=== PATIENT | female | born 1940 | race Caucasian/White ===

== ENCOUNTER 2020-07-19 | Emergency (ER) | payer MEDICARE, OTHER ==
--- NOTE | 2020-07-19 14:17 | ED Physician Documentation ---
History of Present Illness - Stated complaint Stated Complaint: R HAND/LEG PX - Chief complaint Chief Complaint: General - History obtained from History obtained from: Patient - Additonal information Additional information: Pt c/o dorsal R hand pain, only when she pushes on it, x 1 month. Same sensation in R lateral lower leg. No direct injury. No increased use. No swelling or skin discoloration. No deformity. No other sx. No h/o DVT. No specific arthritis dx. No other complaints. [place] . Review of Systems Ten Systems: 10 systems reviewed and negative Constitutional: reports: Reviewed and negative Eyes: reports: Reviewed and negative Ears: reports: Reviewed and negative Nose: reports: Reviewed and negative Throat: reports: Reviewed and negative Cardiac: reports: Reviewed and negative Respiratory: reports: Reviewed and negative GI: reports: Reviewed and negative : reports: Reviewed and negative Skin: reports: Reviewed and negative Musculoskeletal: reports: Extremity pain, Joint pain Neurologic: reports: Reviewed and negative Psychiatric: reports: Reviewed and negative Endocrine: reports: Reviewed and negative Immunocompromised: reports: Reviewed and negative PD PAST MEDICAL HISTORY - Past Medical History Neuro: Other Endocrine/Autoimmune: Type 2 diabetes Other Past Medical History: 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 at age 17, "short term memory problems" - Past Surgical History Past Surgical History: No General: Cholecystectomy, 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 HEENT: Tonsil/Adenoidectomy - Present Medications Home Medications: Ambulatory Orders Medication Instructions Recorded Confirmed Home Medications Unobtainable 07/19/20 07/19/20 [HOME MEDICATIONS UNOBTAINABLE] - Allergies Allergies/Adverse Reactions: Allergies Allergy/AdvReac Type Severity Reaction Status Date / Time Penicillins AdvReac Unknown Verified 07/19/20 14:14 Sulfa (Sulfonamide AdvReac Unknown Verified 07/19/20 14:14 Antibiotics) - Social History Does the pt smoke?: No Smoking Status: Never smoker Does the pt drink ETOH?: No Substance Use and Type: Marijuana - Immunizations Immunizations are current?: Yes PD ED PE NORMAL - Vitals Vital signs reviewed: Yes - General General: Alert and oriented X 3, No acute distress - HEENT HEENT: Atraumatic, PERRL, EOMI, Moist mucous membranes - Neck Neck: Supple, no meningeal sign - Cardiac Cardiac: Strong equal pulses - Respiratory Respiratory: No respiratory distress - Derm Derm: Normal color, Warm and dry, No rash - Extremities Extremities: No deformity, Normal ROM s pain, No edema, No calf tenderness / cord, Other (Minimal TTP R hand dorsum. No other abnormality. R FA normal. Slight TTP R lateral lower leg. No trauma. 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 We have discussed the use of ibuprofen PRN, and follow-up if needed. Departure - Departure Disposition: 01 Home, Self Care Clinical Impression: Hand pain, right Leg pain, lateral Qualifiers: Laterality: right Qualified Code(s): M79.604 - Pain in right leg Condition: Stable Instructions: ED Muscle Pain Leg Cramps, ED Degenerative Joint Disease Comments: Right now, both your hand and your leg look normal. There is no evidence of a blood clot in the leg, and you have not had any trauma or swelling to raise concern. At this point in time, is not exactly clear with causing her symptoms, though it may be some degree of arthritis in your hand. You may take ibuprofen occasionally as needed for this, and you may apply an ice pack also, if needed. If your right leg begins to swell up and become increasingly painful, then you should have it rechecked. Otherwise, please follow-up with Dr. Grove for further concerns regarding this symptoms Discharge Date/Time: 07/19/20 14:36
== END 2020-07-19 14:36 | disposition home or self-care (01) ==
CPT/HCPCS: 99282; 99283

== ENCOUNTER 2020-07-19 11:05 | Outpatient (CLI) | payer MEDICARE, OTHER | END 2020-07-19 11:06 | disposition critical access hospital (66) | LOC: EMS 11:05 | DX: M79.601 Pain in right arm (principal); M79.604 Pain in right leg; M54.2 Cervicalgia | CPT/HCPCS: A0425; A0429 ==

== ENCOUNTER 2021-02-13 08:00 | Outpatient (CLI) | payer MEDICARE, OTHER | END 2021-02-13 08:01 | disposition home or self-care (01) | LOC: LAB.N 08:00 | PROVIDERS: ATTEND Nurse Practitioner | DX: N39.0 Urinary tract infection, site not specified (principal) | CPT/HCPCS: 87086 ==

== ENCOUNTER 2021-02-22 08:00 | Outpatient (CLI) | payer MEDICARE, OTHER | END 2021-02-22 23:59 | LOC: LAB.N 08:00 | PROVIDERS: ATTEND Family Medicine | DX: N39.0 Urinary tract infection, site not specified (principal) | CPT/HCPCS: 87086 ==

== ENCOUNTER 2021-02-26 15:41 | Outpatient (CLI) | payer MEDICARE, OTHER | END 2021-02-26 15:42 | disposition critical access hospital (66) | LOC: EMS 15:41 | DX: N39.0 Urinary tract infection, site not specified (principal) | CPT/HCPCS: A0425; A0429 ==

== ENCOUNTER 2021-02-26 15:59 | Emergency (ER) | payer MEDICARE, OTHER ==
[2021-02-26] MEDS ORDERED: SODIUM CHLORIDE 0.9% 1,000 ML IV STA ×2 (16:56→21:53)
--- NOTE | 2021-02-26 16:58 | ED Physician Documentation ---
History of Present Illness - Stated complaint Stated Complaint: BLADDER INFECTION - Chief complaint Chief Complaint: UTI - Additonal information Additional information: 80-year-old female presents the emergency department for evaluation of unchanged urinary symptoms. She reports dysuria urgency and frequency. She was seen at a local walk-in clinic about 3 days ago and diagnosed with a urinary tract infection and started on cipro 500 mg po BID. Despite taking this she continues to have worsening symptoms, increased fatigue as well as low back pain. She denies any fevers or vomiting. No diarrhea. She is a diabetic on insulin. Reports blood glucose at home of about 230 which is generally high for her. Review of Systems Constitutional: denies: Fever, Chills Ears: reports: Reviewed and negative Throat: reports: Reviewed and negative Cardiac: reports: Reviewed and negative Respiratory: reports: Reviewed and negative GI: denies: Abdominal Pain, Nausea, Vomiting : reports: Dysuria, Frequency Skin: denies: Rash, Lesions Musculoskeletal: reports: Back pain Neurologic: reports: Generalized weakness. 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 HEENT: Tonsil/Adenoidectomy - Present Medications Home Medications: Ambulatory Orders Medication Instructions Recorded Confirmed Alendronate Sodium 4 02/26/21 Atenolol [Tenormin] 25 mg PO DAILY 02/26/21 02/26/21 Cefpodoxime Proxetil [Vantin] 100 mg PO Q12H #14 tablet 02/26/21 Donepezil [Aricept] 10 mg PO DAILY 02/26/21 02/26/21 Insulin Glargine [Lantus Solostar] 14 units SQ DAILY 02/26/21 02/26/21 Levothyroxine [Synthroid] 75 mcg PO QDAC 02/26/21 02/26/21 Loratadine [Allergy Relief] 10 mg PO DAILY 02/26/21 02/26/21 Memantine [Namenda] 5 mg PO DAILY 02/26/21 02/26/21 Omeprazole Magnesium 20 mg PO DAILY 02/26/21 02/26/21 Sertraline [Zoloft] 50 mg PO DAILY 02/26/21 02/26/21 amLODIPine [Norvasc] 10 mg PO DAILY 02/26/21 02/26/21 metFORMIN [Glucophage] 500 mg PO DAILY 02/26/21 02/26/21 - Allergies Allergies/Adverse Reactions: Allergies Allergy/AdvReac Type Severity Reaction Status Date / Time Penicillins AdvReac Unknown Verified 07/19/20 14:14 Sulfa (Sulfonamide AdvReac Unknown Verified 07/19/20 14:14 Antibiotics) - Social History Does the pt smoke?: No Smoking Status: Never smoker Does the pt drink ETOH?: No Does the pt have substance abuse?: No - Immunizations Immunizations are current?: Yes PD ED PE NORMAL - General General: Alert and oriented X 3, No acute distress, Well developed/nourished - Neck Neck: Supple, no meningeal sign, No adenopathy, Thyroid normal - Cardiac Cardiac: RRR, No murmur, No gallop - Respiratory Respiratory: No respiratory distress, Clear bilaterally - Abdomen Abdomen: Normal bowel sounds, Soft, Non tender - Back Back: Other (Mild tenderness of the lower bilateral paraspinous muscles. No CVA tenderness. No flank pain. No guarding or rebound.). 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 Eye Opening: Spontaneous Motor: Obeys Commands Verbal: Oriented GCS Score: 15 Results - Vitals Vitals: Vital Signs - 24 hr 02/26/21 02/26/21 02/26/21 16:05 16:09 17:30 Temperature 36.3 C L 36.3 C L Heart Rate 54 L 54 L 58 L Respiratory 18 18 16 Rate Blood Pressure 109/54 L 109/54 L 112/44 L O2 Saturation 98 98 98 02/26/21 20:00 Temperature Heart Rate 61 Respiratory 17 Rate Blood Pressure 108/76 O2 Saturation 96 Oxygen O2 Source Room air - Labs Labs: Laboratory Tests 02/26/21 02/26/21 02/26/21 16:51 16:57 16:57 WBC 9.8 RBC 3.73 L Hgb 10.2 L Hct 31.6 L MCV 84.7 MCH 27.3 MCHC 32.3 RDW 15.1 H Plt Count 293 MPV 11.2 H Neut # (Auto) 7.4 H Lymph # (Auto) 1.1 L Desha # (Auto) 1.0 Eos # (Auto) 0.3 Baso # (Auto) 0.0 Absolute Nucleated RBC 0.00 Nucleated RBC % 0.0 Sodium 130 L Potassium 4.3 Chloride 97 L Carbon Dioxide 24 Anion Gap 9.0 BUN 35 H Creatinine 1.3 H Estimated GFR (MDRD) 39 L Glucose 147 H Lactic Acid Calcium 8.5 Total Bilirubin 0.5 AST 14 ALT 12 Alkaline Phosphatase 49 Total Protein 7.3 Albumin 3.0 L Globulin 4.3 H Albumin/Globulin Ratio 0.7 L Lipase 27 Urine Color DARK YELLOW Urine Clarity HAZY Urine pH 5.5 Ur Specific Lamona >=1.030 H Urine Protein 30 H Urine Glucose (UA) NEGATIVE Urine Ketones TRACE Urine Occult Blood NEGATIVE Urine Nitrite NEGATIVE Urine Bilirubin NEGATIVE Urine Urobilinogen 0.2 (NORMAL) Ur Leukocyte Esterase SMALL H Urine RBC 0-5 Urine WBC 11-25 H Ur Squamous Epith Cells MANY Squamous H Amorphous Sediment Few Urine Bacteria Many H Ur Microscopic Review INDICATED Urine Culture Comments NOT INDICATED Nasal Adenovirus (PCR) Nasal B. parapertussis DNA (PCR) Nasal Coronavir 229E PCR Nasal Coronavir HKU1 PCR Nasal Coronavir NL63 PCR Nasal Coronavir OC43 PCR Nasal Enterovir/Rhinovir PCR Nasal Influenza B PCR Nasal Influenza A PCR Nasal Parainfluen 1 PCR Nasal Parainfluen 2 PCR Nasal Parainfluen 3 PCR Nasal Parainfluen 4 PCR Nasal RSV (PCR) Nasal B.pertussis DNA PCR Nasal C.pneumoniae (PCR) Emile Human Metapneumo PCR Nasal M.pneumoniae (PCR) Nasal SARS-CoV-2 (PCR) 02/26/21 02/26/21 02/26/21 16:57 19:45 21:00 WBC RBC Hgb Hct MCV MCH MCHC RDW Plt Count MPV Neut # (Auto) Lymph # (Auto) Desha # (Auto) Eos # (Auto) Baso # (Auto) Absolute Nucleated RBC Nucleated RBC % Sodium Potassium Chloride Carbon Dioxide Anion Gap BUN Creatinine Estimated GFR (MDRD) Glucose Lactic Acid 1.4 Calcium Total Bilirubin AST ALT Alkaline Phosphatase Total Protein Albumin Globulin Albumin/Globulin Ratio Lipase Urine Color YELLOW Urine Clarity CLEAR Urine pH 5.0 Ur Specific Lamona 1.010 Urine Protein TRACE Urine Glucose (UA) NEGATIVE Urine Ketones NEGATIVE Urine Occult Blood NEGATIVE Urine Nitrite NEGATIVE Urine Bilirubin NEGATIVE Urine Urobilinogen 0.2 (NORMAL) Ur Leukocyte Esterase NEGATIVE Urine RBC Urine WBC Ur Squamous Epith Cells Amorphous Sediment Urine Bacteria Ur Microscopic Review NOT INDICATED Urine Culture Comments NOT INDICATED Nasal Adenovirus (PCR) NOT DETECTED Nasal B. parapertussis DNA (PCR) NOT DETECTED Nasal Coronavir 229E PCR NOT DETECTED Nasal Coronavir HKU1 PCR NOT DETECTED Nasal Coronavir NL63 PCR NOT DETECTED Nasal Coronavir OC43 PCR NOT DETECTED Nasal Enterovir/Rhinovir PCR NOT DETECTED Nasal Influenza B PCR NOT DETECTED Nasal Influenza A PCR NOT DETECTED Nasal Parainfluen 1 PCR NOT DETECTED Nasal Parainfluen 2 PCR NOT DETECTED Nasal Parainfluen 3 PCR NOT DETECTED Nasal Parainfluen 4 PCR NOT DETECTED Nasal RSV (PCR) NOT DETECTED Nasal B.pertussis DNA PCR NOT DETECTED Nasal C.pneumoniae (PCR) NOT DETECTED Emile Human Metapneumo PCR NOT DETECTED Nasal M.pneumoniae (PCR) NOT DETECTED Nasal SARS-CoV-2 (PCR) NOT DETECTED - Rads (name of study) CT abd Radiology: Final report received (9 mm obstructing stone seen at the left UVJ with associated left hydroureter and hydronephrosis. Perinephric fat stranding is also seen.) PD MEDICAL DECISION MAKING - ED course Complexity details: reviewed results, re-evaluated patient, considered differential, d/w patient ED course: 80-year-old female comes to the emergency department for evaluation of generalized weakness and persistence of urinary symptoms. Seen twice recently at local walk-in clinics where she was diagnosed with a UTI. However despite taking Cipro her symptoms had not improved. She had no fevers or vomiting but did endorse lower back pain that began today. She had no fever. Screening labs showed no leukocytosis. She does appear mildly dehydrated with an elevated BUN and mildly elevated creatinine as well as a concentrated urine. She was repleted with 1.5 L of crystalloid here in the ER. Initially her urine was suggestive of infection though it was a clean-catch and had a fair amount of squamous cells. But given the persistence of urinary symptoms this would have been considered equivocal for infection. A CT scan did show a left UVJ stone as well as some associated hydronephrosis and hydroureter. 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 There was some associated fat stranding. I did discuss this case with Dr. Guallpa a urologist on-call with [facility]. He would recommend repeating her urinalysis with a in and out catheterization. If that did not show any persistence of infection then patient would be stable for discharge home to follow-up with urology as an outpatient. Repeat UA reassuringly shows no further signs of infection. However given the patient's persistence of dysuria urgency and frequency we will transition her from Cipro to Vantin. She will also be referred to urology as an outpatient. I discussed the CT imaging and plan findings with her daughter Kandi at length. Emergent return precautions otherwise discussed. Departure - Departure Disposition: Home, Self Care Clinical Impression: Calculus of ureterovesical junction (UVJ), Hydronephrosis of left kidney, Hydroureter, left, Urinary tract infection symptoms Condition: Stable Record reviewed to determine appropriate education?: Yes Follow-Up: Britni Christiansen MD [Provider Admit Priv/Credential] - Prescriptions: Cefpodoxime Proxetil [Vantin] 100 mg PO Q12H #14 tablet Comments: Lashawn you were seen in the emergency department today for feeling generally weak as well as having urinary tract infection symptoms. Initially the urine provided to us suggested infection though it was a fairly contaminated sample. We repeated your urinalysis by doing an in and out catheterization. Reassuringly the in and out catheterization does not show signs of infection. You do have some mild dehydration therefore we did give you some IV fluids here in the ER and you are reportedly feeling better. The CT scan of your abdomen shows that you do have some swelling in your left kidney due to stones in the kidney as well as the the ureterovesicular junction. I did discuss your CT findings with an on-call urologist at [facility]. Because there are no findings of infection in your urine at this time and your kidney function is essentially normal he feels that you are stable to follow-up with an outpatient urologist. Please call [facility] on Saturday to arrange follow-up. However your primary doctor may need to make a referral. Because you continue to have urinary symptoms despite taking the Cipro I would like to start you on a new antibiotic. A prescription for Cefpodoxime or also known as Vantin has been sent to the [facility] in [place]. Please stop taking the Cipro. If at any point you develop fevers, have worsening symptoms, severe dehydration, any chest pain or shortness of air then you are to return immediately to the ER for a second evaluation.
[2021-02-26 16:59] LABS: BILIRUBIN,URINE NEGATIVE (NEGATIVE); GLUCOSE, URINE (UA) NEGATIVE (NEGATIVE); KETONES,URINE (UA) TRACE mg/dL (NEGATIVE); LEUKOCYTE ESTERASE, URINE SMALL (NEGATIVE); NITRITE,URINE NEGATIVE (NEGATIVE); OCCULT BLOOD,URINE NEGATIVE (NEGATIVE); PH,URINE 5.5 PH (5.0-7.5); PROTEIN,URINE 30 mg/dL (NEGATIVE); UROBILINOGEN,URINE 0.2 (NORMAL) E.U./dL (NORMAL)
[2021-02-26 17:06] LABS: BASOPHILS % (AUTO) 0.4 %; EOSINOPHILS # (AUTO) 0.3 10^3/uL (0.0-0.7); EOSINOPHILS % (AUTO) 2.5 %; HCT - HEMATOCRIT 31.6 % (37.0-47.0); HGB - HEMOGLOBIN 10.2 g/dL (12.0-16.0); LYMPHOCYTES # (AUTO) 1.1 10^3/uL (1.5-3.5); LYMPHOCYTES % (AUTO) 11.6 %; MEAN CORPUSCULAR HEMOGLOBIN 27.3 pg (27.0-31.0); MEAN CORPUSCULAR HGB CONC 32.3 g/dL (32.0-36.0); MEAN CORPUSCULAR VOLUME 84.7 fL (81.0-99.0); MEAN PLATELET VOLUME 11.2 fL (7.9-10.8); NEUTROPHILS # (AUTO) 7.4 10^3/uL (1.5-6.6); NEUTROPHILS % (AUTO) 74.9 %; PLT - PLATELET COUNT 293 10^3/uL (130-450); RED BLOOD COUNT 3.73 10^6/uL (4.20-5.40); RED CELL DISTRIBUTION WIDTH 15.1 % (12.0-15.0); WHITE BLOOD COUNT 9.8 x10^3/uL (4.8-10.8)
[2021-02-26 17:07] LABS: CLARITY,URINE HAZY (CLEAR)
[2021-02-26] MEDS ORDERED: iohexoL-300 100 ML VIAL ONE (17:09)
[2021-02-26 17:13] LABS: RBC,URINE 0-5 /HPF (0-5)
[2021-02-26 17:14] LABS: ALBUMIN/GLOBULIN RATIO 0.7 (1.0-2.2); BILIRUBIN,TOTAL 0.5 mg/dL (0.2-1.0); CALCIUM 8.5 mg/dL (8.5-10.3); CREATININE 1.3 mg/dL (0.4-1.0); POTASSIUM 4.3 mmol/L (3.5-5.0); TOTAL PROTEIN 7.3 g/dL (6.7-8.2)
[2021-02-26 17:14] LABS: AMORPHOUS SEDIMENT,UR Few /LPF; BACTERIA,URINE Many /HPF (None Seen); SQUAMOUS EPITHELIAL CELL,UR MANY Squamous (<= Few)
[2021-02-26] MEDS ORDERED: iohexoL-300 100 ML VIAL IVP ONE (18:01)
--- NOTE | 2021-02-26 18:09 | CT Report ---
PROCEDURE: Abdomen/Pelvis W INDICATIONS: UTI; LOW back pain not improved with abx CONTRAST: IV CONTRAST: Isovue 300 ml: 100 PO CONTRAST: *NO PO CONTRAST TECHNIQUE: After the administration of IV contrast, 5 mm thick sections acquired from the diaphragms to the symp hysis. 5 mm thick coronal and sagittal reformats were acquired. For radiation dose reduction, the f ollowing was used: automated exposure control, adjustment of mA and/or kV according to patient size. COMPARISON: None. FINDINGS: Image quality: There is artifact associated with the metallic hardware. ABDOMEN: Lung bases: Lung bases are clear. Heart size is normal. A small hiatal hernia is incidentally note d. Solid organs: Liver and spleen are normal in size and enhancement. Gallbladder is not seen Biliary system is non dilated. Pancreas enhances normally. No adrenal nodules. There is obstructing stone seen within the distalmost ureter at the left ureterovesicular junction th at measures 9 mm, as on series 3 image 74 and on series 6 image 30. There is associated moderate to p rominent left-sided hydroureter and hydronephrosis. There is decreased enhancement seen of the left k idney compared to the right. Left kidney perinephric fat stranding can be seen. There is a staghorn calculus seen throughout the inferior left renal collecting system that measures nearly 4 cm. Peritoneum and bowel: Bariatric surgery can be seen. Bowel loops demonstrate normal wall thickness and caliber. No free fluid or air. Nodes and vessels: No retroperitoneal or mesenteric adenopathy by size criteria. Aorta and inferior vena cava are normal in size. Atherosclerotic calcification is seen. Miscellaneous: No ventral hernias. PELVIS: Genitourinary: Bladder wall thickness is normal. Miscellaneous: No inguinal hernias or adenopathy. Bones: No suspicious bony lesions. No vertebral body compression fractures. Right hip arthroplasty hardware is seen. Age-appropriate degenerative changes are seen. IMPRESSION: There is a 9 mm obstructing stone seen at the left ureterovesicular junction, with associated left-si ded hydroureter and hydronephrosis. Perinephric fat stranding is also seen. Decreased enhancement seen of the left kidney compared to the right, which is consistent with comprom ised left renal function. There is a left kidney staghorn calculus is seen that measures nearly 4 cm. Incidental note is made of: Small hiatal hernia Bariatric surgery Presumed cholecystectomy Right hip arthroplasty hardware Reviewed by: Augustine Tafoya MD on 02/26/2021 5:08 PM [facility] Approved by: Augustine Tafoya MD on 02/26/2021 5:08 PM [facility] Station ID: [id number]
[2021-02-26] MEDS ORDERED: cefTRIAXone 1 GM in SODIUM CHLORIDE 0.9% MINIBAG 100 ML IV STA (19:13)
[2021-02-26 21:26] LABS: BILIRUBIN,URINE NEGATIVE (NEGATIVE); GLUCOSE, URINE (UA) NEGATIVE (NEGATIVE); KETONES,URINE (UA) NEGATIVE (NEGATIVE); LEUKOCYTE ESTERASE, URINE NEGATIVE (NEGATIVE); NITRITE,URINE NEGATIVE (NEGATIVE); OCCULT BLOOD,URINE NEGATIVE (NEGATIVE); PROTEIN,URINE TRACE mg/dL (NEGATIVE); UROBILINOGEN,URINE 0.2 (NORMAL) E.U./dL (NORMAL)
[2021-02-26 21:35] LABS: B. PARAPERTUSSIS- RESP PCR PAN NOT DETECTED; B. PERTUSSIS- RESP PCR PANEL NOT DETECTED; C. PNEUMONIAE- RESP PCR PANEL NOT DETECTED; CORONAVIRUS 229E-RESP PCR NOT DETECTED; CORONAVIRUS HKU1-RESP PCR NOT DETECTED; CORONAVIRUS NL63-RESP PCR NOT DETECTED; CORONAVIRUS OC43-RESP PCR NOT DETECTED; HUMAN METAPNEUMOVIRUS NOT DETECTED; INFLUENZA A- RESP PCR PANEL NOT DETECTED; INFLUENZA B - RESP PCR PANEL NOT DETECTED; M. PNEUMONIAE- RESP PCR PANEL NOT DETECTED; PARAINFLUENZA VIRUS 1 NOT DETECTED; PARAINFLUENZA VIRUS 2 NOT DETECTED; PARAINFLUENZA VIRUS 3 NOT DETECTED; PARAINFLUENZA VIRUS 4 NOT DETECTED; RHINOVIRUS/ENTEROVIRUS NOT DETECTED; RSV- RESP PCR PANEL NOT DETECTED; SARS-CoV-2 -RESP PCR PANEL NOT DETECTED
[2021-02-26 21:42] LABS: CLARITY,URINE CLEAR (CLEAR)
[2021-02-26] MEDS: SODIUM CHLORIDE 0.9% 500 ML IV STA ×2 (22:15→22:33)
[2021-02-26 22:48] VITALS: BP 116/71
== END 2021-02-26 23:00 | disposition home or self-care (01) ==
LOC: EDUNIT# → ED 15:59
DX: N13.2 Hydronephrosis with renal and ureteral calculous obstruction (principal); E86.0 Dehydration; R53.1 Weakness; R30.0 Dysuria; R35.0 Frequency of micturition; E11.9 Type 2 diabetes mellitus without complications; Z79.4 Long term (current) use of insulin; Z79.84 Long term (current) use of oral hypoglycemic drugs; Z20.822 Contact with and (suspected) exposure to COVID-19
CPT/HCPCS: 36415; 51701; 74177; 80053; 81001; 81003; 83605; 83690; 85025; 87086; 87631; 96361; 96365; 99284; Q9967; 0202U

== ENCOUNTER 2021-02-27 16:59 | Outpatient (CLI) | payer MEDICARE, OTHER | END 2021-02-27 17:00 | disposition critical access hospital (66) | LOC: EMS 16:59 | DX: R53.1 Weakness (principal); R10.30 Lower abdominal pain, unspecified; M54.9 Dorsalgia, unspecified | CPT/HCPCS: A0425; A0429 ==

== ENCOUNTER 2021-02-27 17:20 | Inpatient (IN) | payer MEDICARE, OTHER ==
[2021-02-27 18:14] LABS: HCT - HEMATOCRIT 30.7 % (37.0-47.0); HGB - HEMOGLOBIN 10.2 g/dL (12.0-16.0); MEAN CORPUSCULAR HEMOGLOBIN 27.8 pg (27.0-31.0); MEAN CORPUSCULAR VOLUME 83.7 fL (81.0-99.0); RED BLOOD COUNT 3.67 10^6/uL (4.20-5.40); WHITE BLOOD COUNT 13.5 x10^3/uL (4.8-10.8)
[2021-02-27 18:15] LABS: LYMPHOCYTES % (AUTO) 2.5 %; MEAN CORPUSCULAR HGB CONC 33.2 g/dL (32.0-36.0); MEAN PLATELET VOLUME 10.9 fL (7.9-10.8); NEUTROPHILS % (AUTO) 89.9 %; PLT - PLATELET COUNT 259 10^3/uL (130-450); RED CELL DISTRIBUTION WIDTH 15.3 % (12.0-15.0)
[2021-02-27 18:16] LABS: BASOPHILS # (AUTO) 0.1 10^3/uL (0.0-0.1); BASOPHILS % (AUTO) 0.5 %; EOSINOPHILS % (AUTO) 0.3 %; LYMPHOCYTES # (AUTO) 0.4 10^3/uL (1.5-3.5); MONOCYTES # (AUTO) 0.9 10^3/uL (0.0-1.0); MONOCYTES % (AUTO) 6.1 %; NEUTROPHILS # (AUTO) 12.4 10^3/uL (1.5-6.6)
[2021-02-27 18:34] LABS: BILIRUBIN,TOTAL 0.5 mg/dL (0.2-1.0); CALCIUM 8.3 mg/dL (8.5-10.3); CREATININE 1.4 mg/dL (0.4-1.0); POTASSIUM 4.4 mmol/L (3.5-5.0)
[2021-02-27 18:35] LABS: ALBUMIN/GLOBULIN RATIO 0.8 (1.0-2.2); TOTAL PROTEIN 6.9 g/dL (6.7-8.2)
--- NOTE | 2021-02-27 19:20 | ED Physician Documentation ---
History of Present Illness - Stated complaint Stated Complaint: WEAKNESS - Chief complaint Chief Complaint: General - History obtained from History obtained from: Patient, Family (I obtained further information in phone conversation with patient's daughter (Kandi Harper)), EMS - History of Present Illness Timing: Yesterday - Additonal information Additional information: evaluated 4 days ago in outpatient setting for what daughter says was gradually worsening confusion which has correlated with UTI in the past; patient was reportedly diagnosed as UTI and started on BID cipro. She then was evaluated in this ED ([facility]) yesterday for dysuria, urgency, and urinary frequency (per ED note), and CT A/P revealed 9mm left UVJ calculus with left hydroureter and hydro nephrosis as well as left perinephric stranding; also noted was 4cm left staghorn calculus. She was switched from Cipro to Vantin and discharged. She returns at this time for increasing confusion. Patient unable to provide reliable contribution to HPI/ROS due to confusion (AAOx1, self only). Daughter says patient is clearly off baseline with her confusion, and that patient does not have COPD and does not use oxygen at home (but uses CPAP at night). Review of Systems Unable to obtain: Confused PD PAST MEDICAL HISTORY - Past Medical History Respiratory: None Neuro: Other Endocrine/Autoimmune: Type 2 diabetes HEENT: None Psych: None Musculoskeletal: None Derm: None - Past Surgical History Past Surgical History: No General: Cholecystectomy, Appendectomy /ORTHOTIC FITTER: Hysterectomy HEENT: Tonsil/Adenoidectomy - Present Medications Home Medications: Ambulatory Orders Medication Instructions Recorded Confirmed Alendronate Sodium 4 02/26/21 Atenolol [Tenormin] 25 mg PO DAILY 02/26/21 02/26/21 Cefpodoxime Proxetil [Vantin] 100 mg PO Q12H #14 tablet 02/26/21 Donepezil [Aricept] 10 mg PO DAILY 02/26/21 02/26/21 Insulin Glargine [Lantus Solostar] 14 units SQ DAILY 02/26/21 02/26/21 Levothyroxine [Synthroid] 75 mcg PO QDAC 02/26/21 02/26/21 Loratadine [Allergy Relief] 10 mg PO DAILY 02/26/21 02/26/21 Memantine [Namenda] 5 mg PO DAILY 02/26/21 02/26/21 Omeprazole Magnesium 20 mg PO DAILY 02/26/21 02/26/21 Sertraline [Zoloft] 50 mg PO DAILY 02/26/21 02/26/21 amLODIPine [Norvasc] 10 mg PO DAILY 02/26/21 02/26/21 metFORMIN [Glucophage] 500 mg PO DAILY 02/26/21 02/26/21 - Allergies Allergies/Adverse Reactions: Allergies Allergy/AdvReac Type Severity Reaction Status Date / Time Penicillins AdvReac Unknown Verified 07/19/20 14:14 Sulfa (Sulfonamide AdvReac Unknown Verified 07/19/20 14:14 Antibiotics) - Social History Does the pt smoke?: No Smoking Status: Never smoker Does the pt drink ETOH?: No Does the pt have substance abuse?: No - Immunizations Immunizations are current?: Yes PD ED PE NORMAL - Vitals Vital signs reviewed: Yes - General General: No acute distress, Well developed/nourished - HEENT HEENT: Moist mucous membranes - Neck Neck: Supple, no meningeal sign - Cardiac Cardiac: RRR - Respiratory Respiratory: No respiratory distress, Clear bilaterally - Abdomen Abdomen: Normal bowel sounds, Soft, Non tender - Back Back: No CVA TTP - Derm Derm: Normal color, Warm and dry - Extremities Extremities: No edema - Neuro Eye Opening: Spontaneous Motor: Obeys Commands Verbal: Confused GCS Score: 14 PD ED PE EXPANDED - General General: No acute distress - Neuro Neuro: Confused, Disoriented (thinks she is in [place]; then corrects herself only to again concluded she is in [place]) - GCS Eye Opening: Spontaneous Motor: Obeys Commands Verbal: Confused Total: 14 Results - Vitals Vitals: Vital Signs - 24 hr 02/27/21 02/27/21 02/27/21 22:08 22:12 22:45 Temperature Heart Rate 51 L 51 L 52 L Respiratory 16 14 Rate Blood Pressure 110/49 L 110/49 L 102/50 L O2 Saturation 93 92 93 02/27/21 02/28/21 02/28/21 23:57 01:11 02:18 Temperature 36.4 C L 36.6 C Heart Rate 50 L 80 Respiratory 13 14 14 Rate Blood Pressure 109/44 L 117/46 L 143/59 H O2 Saturation 98 96 02/28/21 02/28/2102/28/22 03:31 04:21 06:00 Temperature 36.5 C 37.0 C Heart Rate 64 58 L 59 L Respiratory 14 15 15 Rate Blood Pressure 121/43 L 113/44 L O2 Saturation 100 100 96 02/28/21 02/28/21 02/28/21 06:23 10:25 10:29 Temperature 36.5 C Heart Rate 56 L 55 L 58 L Respiratory 14 14 Rate Blood Pressure 113/44 L 117/44 L 117/44 L O2 Saturation 97 91 L 97 02/28/21 02/28/21 02/28/21 12:00 12:41 14:00 Temperature Heart Rate 64 54 L Respiratory 14 16 Rate Blood Pressure 129/47 L 129/47 L 115/46 L O2 Saturation 96 98 02/28/21 02/28/21 02/28/21 16:00 18:47 21:00 Temperature 39.1 C H 37.6 C Heart Rate 54 L 53 L Respiratory Rate Blood Pressure 120/46 L 106/53 L O2 Saturation 97 97 Oxygen O2 Source Nasal cannula Oxygen Flow Rate 3 - Labs Labs: Microbiology 02/27/21 21:21 Blood Culture - Preliminary Blood NO GROWTH AFTER 1 DAY Laboratory Tests 02/27/21 02/27/21 02/27/21 18:00 18:00 18:00 WBC 13.5 H RBC 3.67 L Hgb 10.2 L Hct 30.7 L MCV 83.7 MCH 27.8 MCHC 33.2 RDW 15.3 H Plt Count 259 MPV 10.9 H Neut # (Auto) 12.4 H Lymph # (Auto) 0.4 L [place] # (Auto) 0.9 Eos # (Auto) 0.0 Baso # (Auto) 0.1 Absolute Nucleated RBC 0.00 Nucleated RBC % 0.0 Sodium 131 L Potassium 4.4 Chloride 98 L Carbon Dioxide 21 Anion Gap 12.0 BUN 36 H Creatinine 1.4 H Estimated GFR (MDRD) 36 L Glucose 183 H Lactic Acid 1.8 Calcium 8.3 L Total Bilirubin 0.5 AST 17 ALT 14 Alkaline Phosphatase 57 Total Protein 6.9 Albumin 3.0 L Globulin 3.9 Albumin/Globulin Ratio 0.8 L Lipase 26 Urine Color Urine Clarity Urine pH Ur Specific [place] Urine Protein Urine Glucose (UA) Urine Ketones Urine Occult Blood Urine Nitrite Urine Bilirubin Urine Urobilinogen Ur Leukocyte Esterase Urine RBC Urine WBC Ur Squamous Epith Cells Urine Bacteria Urine Casts Ur Microscopic Review Urine Culture Comments 02/27/21 02/28/21 02/28/21 18:00 19:37 19:37 WBC 10.9 H RBC 3.34 L Hgb 9.0 L Hct 28.6 L MCV 85.6 MCH 26.9 L MCHC 31.5 L RDW 15.6 H Plt Count 252 MPV 11.0 H Neut # (Auto) 9.6 H Lymph # (Auto) 0.4 L [place] # (Auto) 0.7 Eos # (Auto) 0.0 Baso # (Auto) 0.1 Absolute Nucleated RBC 0.00 Nucleated RBC % 0.0 Sodium Potassium Chloride Carbon Dioxide Anion Gap BUN Creatinine Estimated GFR (MDRD) Glucose Lactic Acid 1.7 Calcium Total Bilirubin AST ALT Alkaline Phosphatase Total Protein Albumin Globulin Albumin/Globulin Ratio Lipase Urine Color YELLOW Urine Clarity CLEAR Urine pH 5.5 Ur Specific [place] 1.025 Urine Protein 30 H Urine Glucose (UA) NEGATIVE Urine Ketones NEGATIVE Urine Occult Blood NEGATIVE Urine Nitrite NEGATIVE Urine Bilirubin NEGATIVE Urine Urobilinogen 0.2 (NORMAL) Ur Leukocyte Esterase NEGATIVE Urine RBC 0-5 Urine WBC 0-3 Ur Squamous Epith Cells FEW Squamous Urine Bacteria Few Urine Casts 0-2 Course Granular Ur Microscopic Review INDICATED Urine Culture Comments NOT INDICATED 02/28/21 19:37 WBC RBC Hgb Hct MCV MCH MCHC RDW Plt Count MPV Neut # (Auto) Lymph # (Auto) [place] # (Auto) Eos # (Auto) Baso # (Auto) Absolute Nucleated RBC Nucleated RBC % Sodium 131 L Potassium 4.6 Chloride 102 Carbon Dioxide 19 L Anion Gap 10.0 BUN 39 H Creatinine 1.3 H Estimated GFR (MDRD) 39 L Glucose 253 H Lactic Acid Calcium 7.5 L Total Bilirubin AST ALT Alkaline Phosphatase Total Protein Albumin Globulin Albumin/Globulin Ratio Lipase Urine Color Urine Clarity Urine pH Ur Specific [place] Urine Protein Urine Glucose (UA) Urine Ketones Urine Occult Blood Urine Nitrite Urine Bilirubin Urine Urobilinogen Ur Leukocyte Esterase Urine RBC Urine WBC Ur Squamous Epith Cells Urine Bacteria Urine Casts Ur Microscopic Review Urine Culture Comments - Rads (name of study) chest xray Radiology: Prelim report reviewed, See rad report PD MEDICAL DECISION MAKING - ED course Complexity details: reviewed old records, reviewed results, re-evaluated patient, considered differential, d/w patient, d/w family ED course: presents due to confusion and generalized weakness. She was started on BID cipro in outpatient setting 4 days ago for UTI, then T+R from this ED yesterday for ongoing UTI symptoms. Her testing yesterday included UA which initially appeared c/w UTI but subsequently a catheterized specimen was obtained and this did not suggest UTI. She had CT A/P performed which showed left kidney staghorn calculus and 9mm UVJ calculus with left hydronephrosis, hydroureter, and perinephric stranding. She was discharged and antibiotic was changed to vantin (from Cipro). Tonight she is febrile on presentation (38.8). Her WBC is 13.5 (up from 9.8 yesterday). While her UA tonight is unremarkable, the concern is fever in setting of large, obstructing UVJ calculus and no other obvious source for fever. I discussed the case with Dr. Laureano (urology at [facility] recommends transfer to facility with IR, urology; this would potentially include .. depending on bed availability. Transfer center says patient is tentatively accepted to .. but no beds available. I discussed the case with [facility], no beds available at any of the facilities they cover. Patient will thus be held in our ED until bed at appropriate facility is available. Departure - Departure Disposition: 02 Transfer Acute Care Hosp
[2021-02-27 19:33] LABS: CLARITY,URINE CLEAR (CLEAR); LEUKOCYTE ESTERASE, URINE NEGATIVE (NEGATIVE); NITRITE,URINE NEGATIVE (NEGATIVE); OCCULT BLOOD,URINE NEGATIVE (NEGATIVE); PH,URINE 5.5 PH (5.0-7.5); PROTEIN,URINE 30 mg/dL (NEGATIVE); UROBILINOGEN,URINE 0.2 (NORMAL) E.U./dL (NORMAL)
[2021-02-27 19:34] LABS: BILIRUBIN,URINE NEGATIVE (NEGATIVE); GLUCOSE, URINE (UA) NEGATIVE (NEGATIVE); KETONES,URINE (UA) NEGATIVE (NEGATIVE)
[2021-02-27 19:36] LABS: RBC,URINE 0-5 /HPF (0-5); SQUAMOUS EPITHELIAL CELL,UR FEW Squamous (<= Few); WBC,URINE 0-3 /HPF (0-5)
[2021-02-27 19:37] LABS: BACTERIA,URINE Few /HPF (None Seen); CASTS, URINE 0-2 Course Granular /LPF
[2021-02-27] MEDS ORDERED: ACETAMINOPHEN 325 MG TABLET PO STA (19:38)
--- NOTE | 2021-02-27 20:49 | XRAY Report ---
PROCEDURE: Chest 1 View X-Ray INDICATIONS: hypoxia TECHNIQUE: One view of the chest was acquired. COMPARISON: CT abdomen pelvis 02/26/2021. FINDINGS: Surgical changes and devices: None. Lungs and pleura: There is an asymmetric indistinct opacity in the right apex. Mild blunting of left costophrenic angle is consistent with pleural thickening seen on the recent CT. Mediastinum: Mediastinal contours appear normal. Heart size is normal. Bones and chest wall: No suspicious bony lesions. Overlying soft tissues appear unremarkable. IMPRESSION: 1. Asymmetric opacity in the right apex may represent overlapping vascular and bony structures but an apical mass cannot be excluded. Recommend a repeat PA and lateral study when clinically feasible. Reviewed by: Jasmeet Anaya MD on 02/27/2021 8:48 PM PST Approved by: Jasmeet Anaya MD on 02/27/2021 8:48 PM [facility] Station ID: [id number]
[2021-02-27] MEDS ORDERED: SODIUM CHLORIDE 0.9% 1,000 ML IV STA (21:06)
[2021-02-27] MEDS ORDERED: cefTRIAXone 1 GM in SODIUM CHLORIDE 0.9% MINIBAG 100 ML IV STA (21:07)
[2021-02-27] MEDS ORDERED: cefTRIAXone 1 GM VIAL ONE (21:23)
[2021-02-28] MEDS ORDERED: ACETAMINOPHEN 325 MG TABLET PO STA ×2 (18:50→19:23)
[2021-02-28] MEDS ORDERED: cefTRIAXone 1 GM in SODIUM CHLORIDE 0.9% MINIBAG 100 ML IV STA (19:22)
[2021-02-28] MEDS ORDERED: cefTRIAXone 1 GM VIAL ONE (19:43)
[2021-02-28 19:44] LABS: BASOPHILS # (AUTO) 0.1 10^3/uL (0.0-0.1); BASOPHILS % (AUTO) 0.6 %; EOSINOPHILS % (AUTO) 0.3 %; HCT - HEMATOCRIT 28.6 % (37.0-47.0); LYMPHOCYTES # (AUTO) 0.4 10^3/uL (1.5-3.5); LYMPHOCYTES % (AUTO) 3.4 %; MEAN CORPUSCULAR HEMOGLOBIN 26.9 pg (27.0-31.0); MEAN CORPUSCULAR HGB CONC 31.5 g/dL (32.0-36.0); MEAN CORPUSCULAR VOLUME 85.6 fL (81.0-99.0); MONOCYTES # (AUTO) 0.7 10^3/uL (0.0-1.0); MONOCYTES % (AUTO) 6.5 %; NEUTROPHILS # (AUTO) 9.6 10^3/uL (1.5-6.6); PLT - PLATELET COUNT 252 10^3/uL (130-450); RED BLOOD COUNT 3.34 10^6/uL (4.20-5.40); RED CELL DISTRIBUTION WIDTH 15.6 % (12.0-15.0); WHITE BLOOD COUNT 10.9 x10^3/uL (4.8-10.8)
[2021-02-28 19:54] LABS: CALCIUM 7.5 mg/dL (8.5-10.3); CREATININE 1.3 mg/dL (0.4-1.0); POTASSIUM 4.6 mmol/L (3.5-5.0)
--- NOTE | 2021-03-01 04:32 | ED Physician Documentation ---
ED Addendum - Addendum Addendum: 03/01/21 04:30 Continue to await available bed at appropriate facility. She remains stable with normal blood pressures. She again had fever 1/ which responded to acetaminophen. Receiving Rocephin 1gram IV QD. 03/01/21 04:32 Note that respiratory PCR panel including COVID were performed on 02/26/21 (all results were negative)
[2021-03-01 07:12] LABS: CREATININE 1.2 mg/dL (0.4-1.0); POTASSIUM 4.4 mmol/L (3.5-5.0)
--- NOTE | 2021-03-01 08:21 | ED Physician Documentation ---
ED Addendum - Addendum Addendum: 03/01/21 08:21 Patient seen at bedside. She is demented but seems to be in good spirits eating breakfast. Last fever was last night around 6 PM. Renal function improving on labs, white count coming down as well. Spoke with daughter by phone. Currently the plan is that she is tentatively accepted to [facility] via [facility] system, but no bed available yet so still waiting on that. Discussed CODE STATUS with daughter, she is DNR/DNI. 03/01/21 18:52 End of shift, still no beds available, plan of care to continue.
[2021-03-01] MEDS: LEVOTHYROXINE 75 MCG TABLET PO SCH (08:40)
[2021-03-01] MEDS: MEMANTINE 5 MG TABLET PO SCH (09:13)
[2021-03-01] MEDS: metFORMIN 500 MG TABLET PO SCH (09:13)
[2021-03-01] MEDS: SERTRALINE 50 MG TABLET PO SCH (09:13)
[2021-03-01] MEDS: cefTRIAXone 1 GM in SODIUM CHLORIDE 0.9% MINIBAG 100 ML IV SCH (09:13)
[2021-03-01] MEDS ORDERED: DONEPEZIL 5 MG TABLET PO SCH (21:00)
--- NOTE | 2021-03-02 03:25 | ED Physician Documentation ---
ED Addendum - Addendum Addendum: 03/02/21 03:24 d/w Dr. Tang Lara, hospitalist - [facility] ( system) and provided an update. has patient on top of list at [facility] for a bed in the morning today. possible IR in AM. 03/02/21 03:28
[2021-03-02 06:46] LABS: BASOPHILS # (AUTO) 0.1 10^3/uL (0.0-0.1); BASOPHILS % (AUTO) 0.6 %; EOSINOPHILS # (AUTO) 0.3 10^3/uL (0.0-0.7); EOSINOPHILS % (AUTO) 2.5 %; HCT - HEMATOCRIT 28.3 % (37.0-47.0); HGB - HEMOGLOBIN 9.1 g/dL (12.0-16.0); LYMPHOCYTES # (AUTO) 0.7 10^3/uL (1.5-3.5); LYMPHOCYTES % (AUTO) 6.7 %; MEAN CORPUSCULAR HGB CONC 32.2 g/dL (32.0-36.0); MEAN PLATELET VOLUME 11.1 fL (7.9-10.8); MONOCYTES # (AUTO) 0.9 10^3/uL (0.0-1.0); NEUTROPHILS % (AUTO) 80.4 %; PLT - PLATELET COUNT 271 10^3/uL (130-450); RED BLOOD COUNT 3.37 10^6/uL (4.20-5.40); RED CELL DISTRIBUTION WIDTH 15.9 % (12.0-15.0)
[2021-03-02 06:55] LABS: CALCIUM 8.1 mg/dL (8.5-10.3); CREATININE 0.9 mg/dL (0.4-1.0)
[2021-03-02] MEDS: LEVOTHYROXINE 75 MCG TABLET PO SCH (07:18)
[2021-03-02] MEDS: SERTRALINE 50 MG TABLET PO SCH (09:17)
[2021-03-02] MEDS: metFORMIN 500 MG TABLET PO SCH (09:17)
[2021-03-02] MEDS: MEMANTINE 5 MG TABLET PO SCH (09:17)
[2021-03-02] MEDS: cefTRIAXone 1 GM in SODIUM CHLORIDE 0.9% MINIBAG 100 ML IV SCH (09:18)
--- NOTE | 2021-03-02 15:17 | CT Report ---
PROCEDURE: Abdomen/Pelvis WO INDICATIONS: L kidney stone TECHNIQUE: Noncontrast 5 mm thick sections acquired from the diaphragms to the symphysis. 5 mm coronal and sagi ttal reformats were then performed. For radiation dose reduction, the following was used: automated exposure control, adjustment of mA and/or kV according to patient size. COMPARISON: CT abdomen pelvis 02/26/2021 FINDINGS: Image quality: There is limited visualization of the pelvis secondary to artifact from hip arthropla sty. ABDOMEN: Lung bases: There is been interval development of mild to moderate pleural effusions, right greater t vasquez left with superimposed consolidations. Heart size is normal. Solid organs: Liver and spleen are normal in size. Calcified splenic artery aneurysm is noted. It i s unchanged. Gallbladder is not visible. Pancreas is normal in contours. No adrenal nodules. Right kidney is unremarkable. Staghorn calculus within the left kidney appears unchanged. However, there is noted to be a 1.1 cm calcification in the posterior collecting system of the superior left renal félix e not previously visualized. Persistent perinephric stranding is present. Previous distal left ureter al calculus is now in the bladder immediately distal to the left ureterovesicular junction. There is a persistent appearance of moderate left-sided hydronephrosis and hydroureter. Peritoneum and bowel: Unenhanced bowel loops demonstrate normal wall thickness and caliber. No free fluid or air. Nodes and vessels: No retroperitoneal or mesenteric adenopathy by size criteria. Aorta and inferior vena cava are normal in caliber. Miscellaneous: No ventral hernias. PELVIS: Genitourinary: Bladder wall thickness is normal. Miscellaneous: No inguinal hernias or adenopathy. Bones: No suspicious bony lesions. No vertebral body compression fractures. IMPRESSION: 1. Persistent staghorn calculus within the left kidney with moderate hydronephrosis and hydroureter. Previous distal left ureteral calculus is now identified within the bladder immediately distal to the ureterovesicular junction. 2. New renal calcifications are at the superior left renal pole. 3. Interval development of mild to moderate effusions with superimposed consolidations. The latter co uld represent atelectasis versus developing pneumonia. Reviewed by: Serena Barker MD on 03/02/2021 3:15 PM PST Approved by: Serena Barker MD on 03/02/2021 3:15 PM PST Station ID: [id number]
--- NOTE | 2021-03-02 16:14 | XRAY Report ---
PROCEDURE: Chest 1 View X-Ray INDICATIONS: pleural effusions on CT TECHNIQUE: One view of the chest was acquired. COMPARISON: February 27, 2021 FINDINGS: SUPPORT DEVICES: None. LUNGS/PLEURA: Blunting of the costophrenic sulci, compatible with small right and trace left pleural effusions. No pneumothorax. MEDIASTINUM: The cardiomediastinal silhouette is within normal limits. BONES/SOFT TISSUES: No acute abnormality. IMPRESSION: 1.Bilateral pleural effusions, better characterized on the prior CT abdomen. Reviewed by: Kee Anderson MD on 03/02/2021 4:12 PM PST Approved by: Kee Anderson MD on 03/02/2021 4:12 PM PST Station ID: [id number]
--- NOTE | 2021-03-02 16:20 | ED Physician Documentation ---
ED Addendum - Addendum Addendum: 03/02/21 16:[address] today shows passage of the ureteral stone. No further fevers. Patient is asymptomatic currently CT scan does show new pleural effusions. Patient is hypoxic and is requiring supplemental oxygen. BNP is elevated. Patient is unsure if she has a history of heart failure or not, patient does have dementia. Her urine cultures are negative as well as blood cultures. Does not appear to be infected at this time. We will begin diuresis and discussed with the ospitalist admission for diuresis. Patient will be placed in observation. Discussed with Dr. Amado. Departure - Departure Disposition: ED Place in Observation Clinical Impression: Pleural effusion Condition: Stable Discharge Date/Time: 03/02/21 17:45
[2021-03-02] MEDS ORDERED: FUROSEMIDE 40 MG/4 ML VIAL IVP STA (16:23)
[2021-03-02] MEDS ORDERED: oxyCODONE 5 MG TABLET PO PRN (16:41)
[2021-03-02] MEDS ORDERED: ONDANSETRON ODT 4 MG TABLET TL PRN (16:41)
[2021-03-02] MEDS ORDERED: SODIUM CHLORIDE FLUSH 0.9% 10 ML SYRINGE IVP PRN (16:41)
[2021-03-02] MEDS ORDERED: ONDANSETRON 4 MG/2 ML VIAL IVP PRN (16:41)
[2021-03-02] MEDS ORDERED: ACETAMINOPHEN 325 MG TABLET PO PRN (16:41)
--- NOTE | 2021-03-02 17:40 | PHARMACY PROGRESS NOTE ---
- Best Possible Medication History Admit Date and Time: 03/02/21 1641 Processed by: Pharmacy Medication History completed: Yes Patient Interview: Pt unable to participate Secondary Source(s): Physician records, Pharmacy records, Insurance records As the person ultimately responsible for medication therapy, providers are able to order a medication from an existing home medication list in [facility] via the "Reconcile Routine" prior to Confirmation of that medication by application support consultant. Such practice is discouraged except when the physician, in their clinical judgment, deems that a medical need exists for a medication without regard to previous use.
[2021-03-02] MEDS ORDERED: MIN OIL/DIMETHICON/COCONUT OIL 92 GM TUBE TOP PRN (17:57)
--- NOTE | 2021-03-02 19:27 | HISTORY & PHYSICAL EXAMINATION ---
Chief Complaint - Chief Complaint Chief Complaint: lower abdomen and back pain History of Present Illness - Admitted From Admitted From:: [facility] - History Obtained From Records Reviewed: yes History obtained from: patient - History of Present Illness HPI Comment/Other: Patient is an 80-year-old female who presented to the ED 4 days ago with lower abdominal and lower back pain. She has been having symptoms for 6 months and contacted her primary care physician within the week prior to her presentation to the ED. Her primary care physician prescribed antibiotics. On the day the patient presented to the ED she was experiencing worsening lower abdominal pain and lower back pain. She called her daughter who advised her to call EMS. Work-up in the ED included a CT of the abdomen/pelvis which showed a 9 mm obstructing stone seen at the left ureterovesicular junction, with associated left-sided hydroureter ureter and hydronephrosis. Perinephric fat stranding was also noted. Decreased enhancement seen of the left kidney compared to the right which is consistent with compromise left renal function. 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 Initial plan was to have the patient transferred to another facility from the emergency department where she could be seen by urology. Patient was in the ED for 4 days pending transfer. In the course of her treatment in the ED she received IV hydration throughout this time. As a result she became dyspneic and slightly hypoxic. Repeat CT of the abdomen/pelvis done today 03/02/2020 showed That the previous distal left ureteral calculus was now identified within the bladder immediately distal to the ureterovesicular junction. However moderate hydronephrosis and hydroureter was still noted. She was presented for admission for treatment of her dyspnea and hypoxia. At bedside she was resting comfortably on a fairly flat bed. She denied chest pain, dyspnea. Reported abdominal soreness. She denied nausea, vomiting, fever or chills. The rest of the visit was unremarkable. 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 She gets around using a walker for long distances and walks unaided in her house. Her daughter also lives in [place] and is very involved in her care. She is fairly independent of activities of daily living. She does not consume alcohol, tobacco or recreational substances. - POLST Patient has POLST: No POLST Status: Full Code Meds/Allgy - Home Medications Home Medications: Ambulatory Orders Medication Instructions Recorded Confirmed Alendronate Sodium 70 mg PO Q7D 02/26/21 03/02/21 Insulin Glargine [Lantus Solostar] 14 units SQ DAILY 02/26/21 03/02/21 Levothyroxine [Synthroid] 75 mcg PO QDAC 02/26/21 03/02/21 Memantine [Namenda] 5 mg PO BID 02/26/21 03/02/21 Sertraline [Zoloft] 50 mg PO DAILY 02/26/21 03/02/21 metFORMIN [Glucophage] 500 mg PO BIDWM 02/26/21 03/02/21 Amlodipine Besylate [Norvasc] 10 mg PO DAILY 03/02/21 03/02/21 Donepezil HCl [Aricept] 10 mg PO QPM 03/02/21 03/02/21 atenoloL [Tenormin] 25 mg PO DAILY 03/02/21 03/02/21 - Allergies Allergies/Adverse Reactions: Allergies Allergy/AdvReac Type Severity Reaction Status Date / Time Penicillins AdvReac Unknown Verified 07/19/20 14:14 Sulfa (Sulfonamide AdvReac Unknown Verified 07/19/20 14:14 Antibiotics) Review of Systems - Constitutional Constitutional: denies: Fatigue, Fever, Chills - Eyes Eyes: denies: Pain, Dipolpia - Ears, Nose & Throat Ears, Nose & Throat: denies: Ear pain, Sore throat - Cardiovascular Cariovascular: denies: Irregular heart rate, Palpitations, Chest pain, Edema, Lightheadedness, Syncope, Exertional dyspnea - Respiratory Respiratory: denies: Cough, Sputum production, Wheezing, SOB at rest, SOB with exertion - Gastrointestinal Gastrointestinal: reports: Abdominal pain. denies: Abdominal distention, Constipation, Diarrhea, Nausea, Vomiting - Genitourinary Genitourinary: reports: Dysuria. denies: Frequency, Urgency, Hematuria - Musculoskeletal Musculoskeletal: reports: Back pain. denies: Muscle pain, Muscle aches, Stiffness - Integumentary Integumentary: denies: Rash, Pruritis, Lesions - Neurological Neurological: denies: General weakness, Focal weakness, Headache - Psychiatric Psychiatric: denies: Depression, Anxiety - Endocrine Endocrine: denies: Polyuria, Polydypsia - Hematologic/Lymphatic Hematologic/Lymphatic: denies: Anemia, Bruising Prior Level of Functionality: She lives in an assisted living facility in [place], [place]. She gets around using a walker for long distances and walks unaided in her house. Her daughter also lives in [place] and is very involved in her care. She is f airly independent of activities of daily living. Exam - Vital Signs Vital Signs: Vital Signs x48h Pulse Resp BP Pulse Ox 03/02/21 16:00 64 17 136/53 H 96 03/02/21 14:00 62 16 134/52 H 99 03/02/21 12:42 63 16 134/52 H 97 - Physical Exam General Appearance: positive: Alert, Mild distress Eyes Bilateral: positive: PERRL, EOMI ENT: positive: No signs of dehydration Neck: positive: No JVD, Trachea midline Respiratory: positive: Chest non-tender, No respiratory distress, Breath sounds nml. negative: Wheezes, Rales, Rhonchi Cardiovascular: positive: Regular rate & rhythm, No murmur Abdomen: positive: Non-tender, No organomegaly, Nml bowel sounds, No distention. negative: Guarding, Rebound Back: positive: Nml inspection Skin: positive: Color nml, No rash, Warm, Dry Extremities: positive: Non-tender, Full ROM, Nml appearance, No pedal edema Neurologic/Psychiatric: positive: Oriented x3, Mood/affect nml Conclusion/Plan - Problem List (1) Pleural effusion Conclusion/Plan: Likely secondary to IV hydration for renal calculi. BNP was 385 IV fluids have been discontinued. Patient was administered Lasix 40 mg and subsequently 20 mg IV. Currently on supplemental oxygen. Will reevaluate in the morning. (2) Calculus of ureterovesical junction (UVJ) Conclusion/Plan: CT of the abdomen/pelvis done today 03/02/2021 showed persistent struggle 1 calculus within the left kidney with moderate hydronephrosis and hydroureter. The previous distal left ureteral calculus was now identified within the bladder immediately distal to the ureterovesicular junction. Patient will need to follow-up with urology for further management. (3) Hypothyroidism Conclusion/Plan: On Synthroid 75 mcg p.o. daily AC. (4) Hypertension Conclusion/Plan: On atenolol and amlodipine. (5) Diabetes mellitus Conclusion/Plan: Metformin at home. Accu-Cheks before every meal and at bedtime and sliding scale insulin ordered. Carb controlled diet ordered. (6) Dementia Conclusion/Plan: On Aricept and Namenda - Lab Results Fish Bones: 03/02/21 06:40 03/02/21 06:40 Core Measures - Anticipated LOS I expect patient to be DC'd or transferred within 96 hours.: Yes - DVT/VTE - Prophylaxis VTE/DVT Device ordered at admit?: Yes VTE/DVT Prophylaxis med ordered at admit?: Yes
[2021-03-02] MEDS ORDERED: FUROSEMIDE 20 MG/2 ML VIAL IVP ONE (20:00)
[2021-03-02] MEDS: SODIUM CHLORIDE FLUSH 0.9% 10 ML SYRINGE IVP SCH (20:52)
[2021-03-02] MEDS: DONEPEZIL 5 MG TABLET PO SCH (20:52)
[2021-03-02] MEDS: INSULIN ASPART 300 UNIT/3 ML PEN SUBQ SCH (21:47)
[2021-03-03] MEDS: SODIUM CHLORIDE FLUSH 0.9% 10 ML SYRINGE IVP SCH ×3 (00:24→17:02)
[2021-03-03 06:11] LABS: BASOPHILS # (AUTO) 0.1 10^3/uL (0.0-0.1); BASOPHILS % (AUTO) 0.5 %; EOSINOPHILS # (AUTO) 0.3 10^3/uL (0.0-0.7); EOSINOPHILS % (AUTO) 2.6 %; HCT - HEMATOCRIT 27.8 % (37.0-47.0); HGB - HEMOGLOBIN 9.2 g/dL (12.0-16.0); LYMPHOCYTES # (AUTO) 0.9 10^3/uL (1.5-3.5); LYMPHOCYTES % (AUTO) 9.1 %; MEAN CORPUSCULAR HEMOGLOBIN 27.2 pg (27.0-31.0); MEAN CORPUSCULAR HGB CONC 33.1 g/dL (32.0-36.0); MEAN CORPUSCULAR VOLUME 82.2 fL (81.0-99.0); MEAN PLATELET VOLUME 10.7 fL (7.9-10.8); MONOCYTES # (AUTO) 0.7 10^3/uL (0.0-1.0); MONOCYTES % (AUTO) 7.2 %; NEUTROPHILS # (AUTO) 8.1 10^3/uL (1.5-6.6); NEUTROPHILS % (AUTO) 79.6 %; PLT - PLATELET COUNT 314 10^3/uL (130-450); RED BLOOD COUNT 3.38 10^6/uL (4.20-5.40); RED CELL DISTRIBUTION WIDTH 15.5 % (12.0-15.0); WHITE BLOOD COUNT 10.2 x10^3/uL (4.8-10.8)
[2021-03-03 06:21] LABS: CREATININE 0.9 mg/dL (0.4-1.0); POTASSIUM 3.7 mmol/L (3.5-5.0)
[2021-03-03] MEDS: INSULIN ASPART 300 UNIT/3 ML PEN SUBQ SCH ×3 (08:46→21:14)
[2021-03-03] MEDS: ENOXAPARIN 40 MG/0.4 ML SYRINGE SUBQ SCH (08:46)
[2021-03-03] MEDS ORDERED: cefTRIAXone 1 GM in SODIUM CHLORIDE 0.9% MINIBAG 100 ML IV SCH (09:00)
[2021-03-03] MEDS ORDERED: FUROSEMIDE 20 MG/2 ML VIAL IVP SCH (09:00)
[2021-03-03 13:22] LABS: ESTIMATED AVERAGE GLUCOSE 160 mg/dL (70-100); HEMOGLOBIN A1c% 7.2 % (4.27-6.07)
--- NOTE | 2021-03-03 14:50 | PROVIDER PROGRESS NOTE ---
Subjective - Prog Note Date Prog Note Date: 03/03/21 Prog Note Time: 14:25 - Subjective Pt reports feeling: Improved Subjective: less sob but tired. no cp, less appetite. no abd pain. no flank pain. no fvers. Current Medications - Current Medications Current Medications: Active Medications Acetaminophen (Acetaminophen 325 Mg Tablet) 650 mg PO Q4HR PRN PRN Reason: Pain 1 to 4 Ciprofloxacin (Ciprofloxacin 250 Mg Tablet) 500 mg PO BID ON LICENSE OF [facility] Donepezil HCl (Donepezil 5 Mg Tablet) 10 mg PO QPM ON LICENSE OF [facility] Last Admin: 03/02/21 20:52 Dose: 10 mg Enoxaparin Sodium (Enoxaparin 40 Mg/0.4 Ml Syringe) 40 mg SUBQ DAILY ON LICENSE OF [facility] Last Admin: 03/03/21 08:46 Dose: 40 mg Furosemide (Furosemide 20 Mg/2 Ml Vial) 20 mg IVP DAILY ON LICENSE OF [facility] Last Admin: 03/03/21 08:47 Dose: 20 mg Insulin Aspart (Insulin Aspart 300 Unit/3 Ml Pen) 1 - 5 unit SUBQ 0800, 1200,1700,2100 ON LICENSE OF [facility]; Protocol Last Admin: 03/03/21 11:37 Dose: 2 unit Mineral Oil (Min Oil/Dimethicon/Coconut Oil 92 Gm Tube) 1 applic TOP PRN PRN PRN Reason: Skin Care Ondansetron HCl (Ondansetron Odt 4 Mg Tablet) 4 mg TL Q6HR PRN PRN Reason: Nausea / Vomiting Ondansetron HCl (Ondansetron 4 Mg/2 Ml Vial) 4 mg IVP Q6HR PRN PRN Reason: Nausea / Vomiting Oxycodone HCl (Oxycodone 5 Mg Tablet) 5 mg PO Q4HR PRN PRN Reason: Pain 5 to 7 Sodium Chloride (Sodium Chloride Flush 0.9% 10 Ml Syringe) 10 ml IVP PRN PRN PRN Reason: NEEDED PER PROVIDER ORDERS Sodium Chloride (Sodium Chloride Flush 0.9% 10 Ml Syringe) 10 ml IVP 0100,0900,1700 ON LICENSE OF [facility] Last Admin: 03/03/21 08:47 Dose: 20 ml Alendronate Sodium 70 mg PO Q7D 02/26/21 Insulin Glargine [Lantus Solostar] 14 units SQ DAILY 02/26/21 Levothyroxine [Synthroid] 75 mcg PO QDAC 02/26/21 Memantine [Namenda] 5 mg PO BID 02/26/21 Sertraline [Zoloft] 50 mg PO DAILY 02/26/21 metFORMIN [Glucophage] 500 mg PO BIDWM 02/26/21 Amlodipine Besylate [Norvasc] 10 mg PO DAILY 03/02/21 Donepezil HCl [Aricept] 10 mg PO QPM 03/02/21 atenoloL [Tenormin] 25 mg PO DAILY 03/02/21 Objective - Vital Signs/Intake & Output Reviewed Vital Signs: Yes Vital Signs: Vital Signs x48h Temp Pulse Resp BP Pulse Ox 03/03/21 11:35 20 92 03/03/21 11:20 37.0 C 64 16 113/64 94 03/03/21 07:55 36.7 C 68 16 125/51 L 91 L Intake & Output: Intake & Output 02/28/21 03/01/21 03/02/21 03/03/21 23:59 23:59 23:59 23:59 Intake Total 100 653 067 4082 Output Total 900 1600 Balance 100 100 -680 -580 - Objective General Appearance: positive: No acute distress, Alert Eyes Bilateral: positive: PERRL, EOMI ENT: positive: No signs of dehydration Neck: positive: No JVD. negative: Stiff neck Respiratory: positive: No respiratory distress, Rales, Other (dull bases) Cardiovascular: positive: Regular rate & rhythm, Systolic murmur. negative: Gallop/S4, Friction rub Abdomen: positive: Non-tender, No organomegaly, Nml bowel sounds, No distention Skin: positive: Warm, Dry, Other (pink buttocks from pressure but no skin breakdown) Extremities: positive: Full ROM, No pedal edema Neurologic/Psychiatric: positive: Oriented x3, Motor nml. negative: CN's nml (2-12) (deaf) - Lab Results Fish Bones: 03/03/21 06:00 03/03/21 06:00 Other Labs: Lab Results x24hrs 03/03/21 03/03/21 03/03/21 Range/Units 06:00 06:00 06:00 WBC 10.2 (4.8-10.8) x10^3/uL RBC 3.38 L (4.20-5.40) 10^6/uL Hgb 9.2 L (12.0-16.0) g/dL Hct 27.8 L (37.0-47.0) % MCV 82.2 (81.0-99.0) fL MCH 27.2 (27.0-31.0) pg MCHC 33.1 (32.0-36.0) g/dL RDW 15.5 H (12.0-15.0) % Plt Count 314 (130-450) 10^3/uL MPV 10.7 (7.9-10.8) fL Neut # (Auto) 8.1 H (1.5-6.6) 10^3/uL Lymph # (Auto) 0.9 L (1.5-3.5) 10^3/uL [place] # (Auto) 0.7 (0.0-1.0) 10^3/uL Eos # (Auto) 0.3 (0.0-0.7) 10^3/uL Baso # (Auto) 0.1 (0.0-0.1) 10^3/uL Absolute Nucleated RBC 0.00 x10^3/uL Nucleated RBC % 0.0 /100WBC Sodium 137 (135-145) mmol/L Potassium 3.7 (3.5-5.0) mmol/L Chloride 102 (101-111) mmol/L Carbon Dioxide 24 (21-32) mmol/L Anion Gap 11.0 (6-13) BUN 25 H (6-20) mg/dL Creatinine 0.9 (0.4-1.0) mg/dL Estimated GFR (MDRD) 60 L (>89) Glucose 151 H (70-100) mg/dL Estimat Average Glucose 160 H (70-100) mg/dL Hemoglobin A1c % 7.2 H (4.27-6.07) % Calcium 8.0 L (8.5-10.3) mg/dL B-Natriuretic Peptide (5-100) pg/mL 03/02/21 Range/Units 06:40 WBC (4.8-10.8) x10^3/uL RBC (4.20-5.40) 10^6/uL Hgb (12.0-16.0) g/dL Hct (37.0-47.0) % MCV (81.0-99.0) fL MCH (27.0-31.0) pg MCHC (32.0-36.0) g/dL RDW (12.0-15.0) % Plt Count (130-450) 10^3/uL MPV (7.9-10.8) fL Neut # (Auto) (1.5-6.6) 10^3/uL Lymph # (Auto) (1.5-3.5) 10^3/uL [place] # (Auto) (0.0-1.0) 10^3/uL Eos # (Auto) (0.0-0.7) 10^3/uL Baso # (Auto) (0.0-0.1) 10^3/uL Absolute Nucleated RBC x10^3/uL Nucleated RBC % /100WBC Sodium (135-145) mmol/L Potassium (3.5-5.0) mmol/L Chloride (101-111) mmol/L Carbon Dioxide (21-32) mmol/L Anion Gap (6-13) BUN (6-20) mg/dL Creatinine (0.4-1.0) mg/dL Estimated GFR (MDRD) (>89) Glucose (70-100) mg/dL Estimat Average Glucose (70-100) mg/dL Hemoglobin A1c % (4.27-6.07) % Calcium (8.5-10.3) mg/dL B-Natriuretic Peptide 385 H (5-100) pg/mL ABX Reporting Has patient been on IV antibiotics over the past 48 hours?: Yes Assessment/Plan - Problem List (1) Hypoxia Impression: We are attributing it to her pleural effusions. She was aggressively resuscit ated in the emergency room with IV fluids for her stone. The differential diagnosis and pleural effusions extensive but we do not think it is any more nefarious than fluid overload. She can be discharged when she is back on room air. Please see management and problem #2.She is improving. She is needing less oxygen this morning than she did yesterday. (2) Pleural effusion Conclusion/Plan: Likely secondary to IV hydration for renal calculi. BNP was 385. We are unable to do echocardiogram due to staffing issues. She will need an echo in the outpatient setting to make sure there is not undiscovered congestive heart failure. IV fluids have been discontinued. Patient was administered Lasix 40 mg and subsequently 20 mg IV. 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 The previous distal left ureteral calculus was now identified within the bladder immediately distal to the ureterovesicular junction. Patient will need to follow-up with urology for further management. she was continued on rocephin for empiric tx in the ER and I will change her to po today to finish a total of 7 days. (4) Hypothyroidism Conclusion/Plan: On Synthroid 75 mcg p.o. daily AC. (5) Hypertension Conclusion/Plan: On atenolol and amlodipine. (6) Diabetes mellitus Conclusion/Plan: Her A1c is 7.2%. At home she takes Lantus 14 units at night, and Metformin. While here, she is only been needing sliding scale insulin. She has not been eating very much so has not needed very much sliding scale insulin. When she is discharged, I will discontinue the Lantus and only continue Metformin. Continue on carb controlled diet. Follow through with her primary care provider to see if she really needs Lantus resumed. (7) Dementia Conclusion/Plan: On Aricept and Namenda
[2021-03-03] MEDS ORDERED: INSULIN ASPART 300 UNIT/3 ML PEN SUBQ SCH (17:01)
[2021-03-03] MEDS: CIPROFLOXACIN 250 MG TABLET PO SCH (21:14)
[2021-03-03] MEDS: DONEPEZIL 5 MG TABLET PO SCH (21:14)
[2021-03-04] MEDS: SODIUM CHLORIDE FLUSH 0.9% 10 ML SYRINGE IVP SCH ×3 (00:45→17:05)
[2021-03-04 06:35] LABS: BASOPHILS # (AUTO) 0.1 10^3/uL (0.0-0.1); BASOPHILS % (AUTO) 0.8 %; EOSINOPHILS # (AUTO) 0.2 10^3/uL (0.0-0.7); EOSINOPHILS % (AUTO) 2.5 %; HCT - HEMATOCRIT 29.6 % (37.0-47.0); HGB - HEMOGLOBIN 9.6 g/dL (12.0-16.0); LYMPHOCYTES # (AUTO) 0.8 10^3/uL (1.5-3.5); LYMPHOCYTES % (AUTO) 8.9 %; MEAN CORPUSCULAR HEMOGLOBIN 26.7 pg (27.0-31.0); MEAN CORPUSCULAR HGB CONC 32.4 g/dL (32.0-36.0); MEAN CORPUSCULAR VOLUME 82.2 fL (81.0-99.0); MEAN PLATELET VOLUME 10.3 fL (7.9-10.8); MONOCYTES # (AUTO) 0.7 10^3/uL (0.0-1.0); MONOCYTES % (AUTO) 7.4 %; NEUTROPHILS # (AUTO) 7.3 10^3/uL (1.5-6.6); NEUTROPHILS % (AUTO) 79.4 %; PLT - PLATELET COUNT 340 10^3/uL (130-450); RED CELL DISTRIBUTION WIDTH 15.4 % (12.0-15.0); WHITE BLOOD COUNT 9.2 x10^3/uL (4.8-10.8)
[2021-03-04] MEDS: CIPROFLOXACIN 250 MG TABLET PO SCH ×2 (08:09→20:55)
[2021-03-04] MEDS: INSULIN ASPART 300 UNIT/3 ML PEN SUBQ SCH ×4 (08:09→20:56)
[2021-03-04] MEDS: ENOXAPARIN 40 MG/0.4 ML SYRINGE SUBQ SCH (08:09)
[2021-03-04] MEDS ORDERED: FUROSEMIDE 40 MG/4 ML VIAL IVP SCH (09:00)
--- NOTE | 2021-03-04 16:05 | PROVIDER PROGRESS NOTE ---
Subjective - Prog Note Date Prog Note Date: 03/04/21 - Subjective Pt reports feeling: Improved Subjective: Reports she feels slightly better but remains tired. Denies dyspnea. Denies nausea and has eaten 100% of her meals today. Objective - Vital Signs/Intake & Output Reviewed Vital Signs: Yes Intake & Output: Intake & Output 03/01/21 03/02/21 03/03/21 03/04/21 23:59 23:59 23:59 23:59 Intake Total 401 373 3225 570 Output Total 900 1700 Balance 100 -680 -355 570 - Objective General Appearance: positive: No acute distress, Alert Eyes Bilateral: positive: Normal inspection, PERRL ENT: positive: ENT inspection nml, No signs of dehydration Neck: positive: Nml inspection Respiratory: positive: Chest non-tender, Rales (in the bases) Cardiovascular: positive: Regular rate & rhythm, Systolic murmur Abdomen: positive: Non-tender, No organomegaly, Nml bowel sounds, No distention Skin: positive: Other (buttocks is red and blanching) Extremities: positive: Non-tender, Full ROM, Nml appearance, No pedal edema Neurologic/Psychiatric: positive: Oriented x3 - Lab Results Fish Bones: 03/04/21 06:27 03/03/21 06:00 Other Labs: Lab Results x24hrs 03/04/21 Range/Units 06:27 WBC 9.2 (4.8-10.8) x10^3/uL RBC 3.60 L (4.20-5.40) 10^6/uL Hgb 9.6 L (12.0-16.0) g/dL Hct 29.6 L (37.0-47.0) % MCV 82.2 (81.0-99.0) fL MCH 26.7 L (27.0-31.0) pg MCHC 32.4 (32.0-36.0) g/dL RDW 15.4 H (12.0-15.0) % Plt Count 340 (130-450) 10^3/uL MPV 10.3 (7.9-10.8) fL Neut # (Auto) 7.3 H (1.5-6.6) 10^3/uL Lymph # (Auto) 0.8 L (1.5-3.5) 10^3/uL [place] # (Auto) 0.7 (0.0-1.0) 10^3/uL Eos # (Auto) 0.2 (0.0-0.7) 10^3/uL Baso # (Auto) 0.1 (0.0-0.1) 10^3/uL Absolute Nucleated RBC 0.00 x10^3/uL Nucleated RBC % 0.0 /100WBC Assessment/Plan - Problem List (1) Hypoxia Impression: Stable. This is likely related to aggressive fluid resuscitation in the ED to treat her stone. Continues to require 1L Nasal cannula but does not feel short of breath today. I checked her this morning after she left the oxygen off for about ten minutes to eat and she was 89-90% on room air. She is satting in the mid 90s this afternoon on 1L NC, may be able to discharge home tomorrow if she is back on room air. (2) Pleural effusion Impression: Likely 2/2 IV hydration she received for her renal calculi. BNP was 385. Due to staffing issues we are unable to do echocardiogram, will need to have one done in the outpatient setting to make sure there is no undiagnosed congestive heart failure. IV fluids have been discontinued. She has been receiving Lasix with appropriate response. Denies shortness of breath today. (3) Calculus of ureterovesical junction (UVJ) Impression: Stable. Denies abdominal pain and dysuria today. 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 The previous distal left ureteral calculus was now identified within the bladder immediately distal to the ureterovesicular junction. Patient will need to follow-up with urology for further management. she was continued on rocephin for empiric tx in the ER, transitioned to oral abx yesterday to finish a total of 7 days. (4) Hypothyroidism Impression: On Synthroid 75 mcg p.o. daily AC. I have added a TSH to the daily lab tomorrow and will plan to restart her Synthroid if it is normal. Qualifiers: Hypothyroidism type: unspecified Qualified Code(s): E03.9 - Hypothyroidism, unspecified (5) Hypertension Impression: Stable. Blood pressures have been 120s-40-50s. She takes Atenolol and Amlodipine at home. Qualifiers: Hypertension type: primary hypertension Qualified Code(s): I10 - Essential (primary) hypertension (6) Diabetes mellitus Impression: Stable. Her A1c is 7.2%. At home she takes Lantus 14 units at night, and Metformin. While here, she has only been needing sliding scale insulin. She has not been eating very much so has not needed very much sliding scale insulin. When she is discharged, I will discontinue the Lantus and only continue Metformin. Continue on carb controlled diet. Follow through with her primary care provider to see if she really needs Lantus resumed. Qualifiers: Diabetes mellitus type: type 2 Diabetes mellitus mcc insulin use: with mcc use Diabetes mellitus complication status: without complication Qualified Code(s): E11.9 - Type 2 diabetes mellitus without complications; Z79.4 - terminal manager (current) use of insulin (7) Dementia Impression: Stable. She has been oriented today. She takes Aricept and Namenda, these were resumed today. Qualifiers: Alzheimer's disease onset: unspecified onset Dementia behavioral disturbance: without behavioral disturbance
[2021-03-04] MEDS ORDERED: LEVOTHYROXINE 75 MCG TABLET PO SCH (17:00)
[2021-03-04] MEDS: DONEPEZIL 5 MG TABLET PO SCH (20:55)
[2021-03-04] MEDS: MEMANTINE 5 MG TABLET PO SCH (20:56)
[2021-03-04] MEDS ORDERED: DONEPEZIL HCL 10 MG PO SCH (21:00)
[2021-03-05] MEDS: SODIUM CHLORIDE FLUSH 0.9% 10 ML SYRINGE IVP SCH ×3 (00:25→20:37)
[2021-03-05] MEDS: INSULIN ASPART 300 UNIT/3 ML PEN SUBQ SCH ×4 (08:04→20:36)
--- NOTE | 2021-03-05 08:21 | PROVIDER PROGRESS NOTE ---
Subjective - Prog Note Date Prog Note Date: 03/05/21 - Subjective Pt reports feeling: Improved Subjective: Reports she continues to feel slightly better. When I assessed her this morning she had not been wearing the nasal cannula for an unknown amount of time, she thought maybe "a few hours". She was wide awake. On room air her oxygen saturation was 89%, only coming up to 90% as she slowly took deep breaths. It came up to 94% on 1L NC. She reports a history of sleep apnea and has used a CPAP for years but has not had it this hospital stay. The ER intake indicates she thought she may use oxygen at home. Her O2 on admission was 87% on room ai r. Will plan to continue to monitor. She may be able to discharge home tomorrow but may need home oxygen set up. She has required 1-3L nasal cannula to maintain sats in the mid to high 90s, satting 87-91% on room air. She does not feel short of breath and her lungs are sounding clear. Denies pain, nausea or vomiting. Objective - Vital Signs/Intake & Output Reviewed Vital Signs: Yes Vital Signs: Vital Signs x48h Temp Pulse Pulse Resp BP Pulse Ox 03/05/21 05:02 37.1 C 64 16 94 03/05/21 04:59 37.1 C 57 L 18 127/46 L 94 03/05/21 00:24 37.1 C 64 16 126/52 L 94 Intake & Output: Intake & Output 03/02/21 03/03/21 03/04/21 03/05/21 23:59 23:59 23:59 23:59 Intake Total 220 1345 1240 150 Output Total 900 1700 450 Balance -680 -355 790 150 - Objective General Appearance: positive: No acute distress, Alert Eyes Bilateral: positive: Normal inspection, PERRL, No scleral icterus ENT: positive: ENT inspection nml, No signs of dehydration Respiratory: positive: Chest non-tender, No respiratory distress, Breath sounds nml Cardiovascular: positive: Regular rate & rhythm, Systolic murmur Peripheral Pulses: 2+ Dorsalis pedis (R), 2+ Dorsalis pedis (L) Abdomen: positive: Non-tender, No organomegaly, Nml bowel sounds, No distention Skin: positive: Pallor, Other (Her buttocks is red and blanching) Extremities: positive: Non-tender, Full ROM, Nml appearance, No pedal edema Neurologic/Psychiatric: positive: Oriented x3 - Lab Results Fish Bones: 03/04/21 06:27 03/03/21 06:00 Other Labs: Lab Results x24hrs 03/05/21 Range/Units 05:23 TSH 7.16 H (0.34-5.60) uIU/mL Assessment/Plan - Problem List (1) Hypoxia Impression: Stable. This is likely related to aggressive fluid resuscitation in the ED to treat her stone. On closer chart review she was 87% on room air on presentation to the ED and appears to have been requiring 1-3L NC to maintain saturations mid to high 90s. Today she was not wearing the nasal cannula when I arrived to assess her. She was wide awake and satting 89%, only coming up to 90% with slow deep breaths. Continues to require 1L Nasal cannula to maintain saturations in the mid 90s but does not feel short of breath today. Today she tells me she has a history of sleep apnea and has been wearing a cpap for years. Today her lungs are clear and she is not dyspneic. Likely can discharge home tomorrow but may need to go home with oxygen. (2) Pleural effusion Impression: Likely 2/2 IV hydration she received for her renal calculi. BNP was 385 on 03/02. Due to staffing issues we are unable to do echocardiogram, will need to have one done in the outpatient setting to make sure there is no undiagnosed congestive heart failure. IV fluids have been discontinued. She has been receiving Lasix with appropriate response. The lasix was transitioned to po today. Denies shortness of breath today. (3) Calculus of ureterovesical junction (UVJ) Impression: Stable. Denies abdominal pain and dysuria today. 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 The previous distal left ureteral calculus was now identified within the bladder immediately distal to the ureterovesicular junction. Patient will need to follow-up with urology for further management. she was continued on rocephin for empiric tx in the ER, transitioned to oral abx 03/03 to finish a total of 7 days. Last dose tomorrow on 03/06. (4) Hypothyroidism Impression: On Synthroid 75 mcg p.o. daily AC. She is subclinical as her TSH was 7.16. This is likely due to not receiving her Synthroid over the last week. She tells me she consistently takes her medication in the morning before breakfast- her daughter places her meds in a mediset for her and takes everything in the mornin g. She may need to start taking this at night or wait 20-30 minutes before eating in the morning while she takes this. She should follow up with her PCP for another check in 2-3 weeks. She is asymptomatic. Qualifiers: Hypothyroidism type: unspecified Qualified Code(s): E03.9 - Hypothyroidism, unspecified (5) Hypertension Impression: Stable. Blood pressures have been 110-120s / 40s-60s. She takes Atenolol and Amlodipine at home but has not been receiving these while she is here. Her heart rates yesterday were in the 50s, this morning it was 70. Regular rhythm on auscultation and palpation. She has denied chest pain. Qualifiers: Hypertension type: primary hypertension Qualified Code(s): I10 - Essential (primary) hypertension (6) Diabetes mellitus Impression: Stable. Her A1c is 7.2%. Blood sugars since 03/01 have been 150s-180. At home she takes Lantus 14 units at night, and Metformin. While here, she has only been needing sliding scale insulin. She has been eating 75-100% of meals. When she is discharged, we will plan to discontinue the Lantus and only continue Metformin. Continue on carb controlled diet. Follow through with her primary care provider to see if she really needs Lantus resumed. Qualifiers: Diabetes mellitus type: type 2 Diabetes mellitus intermediate teacher insulin use: with care home use Diabetes mellitus complication status: without complication Qualified Code(s): E11.9 - Type 2 diabetes mellitus without complications; Z79.4 - custodial (current) use of insulin (7) Dementia Impression: Stable. She has been oriented today. She takes Aricept and Namenda, these have been resumed. Qualifiers: Alzheimer's disease onset: unspecified onset Dementia behavioral disturbance: without behavioral disturbance
[2021-03-05] MEDS: MEMANTINE 5 MG TABLET PO SCH ×2 (09:25→20:37)
[2021-03-05] MEDS: SERTRALINE 50 MG TABLET PO SCH (09:25)
[2021-03-05] MEDS: ENOXAPARIN 40 MG/0.4 ML SYRINGE SUBQ SCH (09:25)
[2021-03-05] MEDS: CIPROFLOXACIN 250 MG TABLET PO SCH ×2 (09:25→20:37)
[2021-03-05] MEDS: FUROSEMIDE 20 MG TABLET PO SCH (09:32)
[2021-03-05] MEDS: LEVOTHYROXINE 75 MCG TABLET PO SCH (09:32)
[2021-03-05] MEDS: DONEPEZIL 5 MG TABLET PO SCH (20:37)
[2021-03-05 21:55] LABS: B. PARAPERTUSSIS- RESP PCR PAN NOT DETECTED; B. PERTUSSIS- RESP PCR PANEL NOT DETECTED; C. PNEUMONIAE- RESP PCR PANEL NOT DETECTED; CORONAVIRUS 229E-RESP PCR NOT DETECTED; CORONAVIRUS HKU1-RESP PCR NOT DETECTED; CORONAVIRUS NL63-RESP PCR NOT DETECTED; CORONAVIRUS OC43-RESP PCR NOT DETECTED; HUMAN METAPNEUMOVIRUS NOT DETECTED; INFLUENZA A- RESP PCR PANEL NOT DETECTED; INFLUENZA B - RESP PCR PANEL NOT DETECTED; M. PNEUMONIAE- RESP PCR PANEL NOT DETECTED; PARAINFLUENZA VIRUS 1 NOT DETECTED; PARAINFLUENZA VIRUS 2 NOT DETECTED; PARAINFLUENZA VIRUS 3 NOT DETECTED; PARAINFLUENZA VIRUS 4 NOT DETECTED; RHINOVIRUS/ENTEROVIRUS NOT DETECTED; RSV- RESP PCR PANEL NOT DETECTED; SARS-CoV-2 -RESP PCR PANEL NOT DETECTED
[2021-03-06] MEDS: SODIUM CHLORIDE FLUSH 0.9% 10 ML SYRINGE IVP SCH ×2 (01:08→08:26)
[2021-03-06] MEDS ORDERED: ALENDRONATE 70 MG TABLET PO SCH (06:00)
[2021-03-06] MEDS: LEVOTHYROXINE 75 MCG TABLET PO SCH (07:55)
[2021-03-06] MEDS: INSULIN ASPART 300 UNIT/3 ML PEN SUBQ SCH ×2 (08:07→11:59)
[2021-03-06] MEDS: MEMANTINE 5 MG TABLET PO SCH (08:25)
[2021-03-06] MEDS: CIPROFLOXACIN 250 MG TABLET PO SCH (08:25)
[2021-03-06] MEDS: SERTRALINE 50 MG TABLET PO SCH (08:26)
[2021-03-06] MEDS: FUROSEMIDE 20 MG TABLET PO SCH (08:26)
[2021-03-06] MEDS: ENOXAPARIN 40 MG/0.4 ML SYRINGE SUBQ SCH (08:26)
--- NOTE | 2021-03-06 10:44 | Discharge Plan ---
Discharge Plan Problem Reviewed?: Yes Disposition: Home, Self Care Condition: Stable Prescriptions: Ciprofloxacin [Cipro] 500 mg PO BID #6 tablet Diet: Regular Activity Restrictions: Activity as Tolerated Shower Restrictions: No Driving Restrictions: No Health Concerns: You came to our emergency room on February 26 and was diagnosed as an obstructing left kidney stone with a urinary tract infection. This is considered a surgical emergency were a urologist has to go in and remove that stone and unblock the kidney. Unfortunately there were no urologist available because of the COVID crisis. There were no beds available on the [facility] for you to be transferred to. You stayed in our emergency room waiting for a bed. While waiting, you were finally able to pass your kidney stone on your own. But you had become fluid overloaded from the IV fluids that were given to you. You had excess water in your body, and that lowered your oxygen level. As such we were able to bring you into the hospital since you no longer needed to see a urologist. We diuresed you by giving you Lasix to make you urinate and get rid of the excess fluid. While here we noticed that you do have sleep apnea and you drop your oxygen when you go to sleep. You need to make sure you wear your sleep mask at night. It is very apparent that your oxygen levels are low at sleep. You are now stable to go home. You are off oxygen. You still have 2 stones in your left kidney. But they are not blocking your ability to urinate. It is no longer considered a surgical urgency. The stone that was blocking you has passed through your bladder. Plan of Treatment: 1. We will resume all of your medications as you were taking them before you were admitted except for lantus. 2. We do think you need a few more days of Lasix to get rid of the excess water in your body. We only want you to take the Lasix for 1 more week and then you can stop it. 3. Please see your primary care provider and follow-up in the next 1 to 2 weeks. We would like them to check your kidney function to make sure that your potassium, sodium, and creatinine are working well. 4. While you were here we noticed that your sugars were very, very, very well controlled. Your glycosylated hemoglobin was 7.2%. Before you came into the hospital you were taking Lantus and metformin. At your age, we think that you can just stay on metformin alone. However you need to talk about it with your doctor. Right now we do not want you to be on Lantus. You and your doctor may decide to keep you on Lantus or stop the metformin. Please make sure you discuss this issue with your doctor. 5. Follow-up with your doctor about the etiology of why you make so many kidney stones. 6. While you were here we did also look at your thyroid. Your thyroid- stimulating hormone level was 7.16 which indicates that your levels are a little low. In investigating if you take your pills on an empty stomach or not, you do not take your thyroid medicine on an empty stomach. This will really make a difference on how you absorb the medicine. Please make sure you take your thyroid medicine on an empty stomach. At least an hour before you eat. Some people actually take it at night before they go to bed knowing that they will be eating until breakfast. Please have your doctor recheck your thyroid hormone in 4 weeks. Care Goals: You want to be able to go back to your baseline life. You live in [facility]. They are you get help with food, dressing, and getting your medications. Make sure you take your sleep apnea mask and use it at night when you sleep. Assessment: Patient has mild cognitive deficit. As much as she follows these instructions she promises to follow through. But she does have a lot of help at her assisted living facility. No Smoking: If you smoke, Please STOP! Call for help. Follow-up with: SHARON ADLER [Primary Care Provider] -
--- NOTE | 2021-03-06 11:19 | DISCHARGE SUMMARY ---
"Discharge Summary Admit Date: 03/02/21 Discharge Date: 03/06/21 Discharging Provider: Xiomara Amado MD Primary Care Provider: Juany Manzano MD Code Status: Attempt Resuscitation Condition at Discharge: Stable Discharge Disposition: 01 Home, Self Care - DIAGNOSES Discharge Diagnoses with Status of Each Condition: 1. Calculus of the ureterovesicular junction 2. Hydronephrosis, resolved 3. Urinary tract infection resolved 4. Hypoxia resolved 5. Pleural effusions that need 1 week more of Lasix daily 6. Dementia 7. Type 2 diabetes mellitus, without complication, with long-term use of insulin. We have stopped the Lantus and she is only supposed to be on metformin at this time. 8. Hypothyroidism. 9. Hypertension 10. Obstructive sleep apnea - HPI History of Present Illness: Patient is an 80-year-old female who presented to the ED 4 days ago with lower abdominal and lower back pain. She has been having symptoms for 6 months and contacted her primary care physician within the week prior to her presentation to the ED. Her primary care physician prescribed antibiotics. On the day the patient presented to the ED she was experiencing worsening lower abdominal pain and lower back pain. She called her daughter who advised her to call EMS. Work-up in the ED included a CT of the abdomen/pelvis which showed a 9 mm obstructing stone seen at the left ureterovesicular junction, with associated le ft-sided hydroureter ureter and hydronephrosis. Perinephric fat stranding was also noted. Decreased enhancement seen of the left kidney compared to the right which is consistent with compromise left renal function. 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 Initial plan was to have the patient transferred to another facility from the emergency department where she could be seen by urology. Patient was in the ED for 4 days pending transfer. In the course of her treatment in the ED she received IV hydration throughout this time. As a result she became dyspneic and slightly hypoxic. Repeat CT of the abdomen/pelvis done today 03/02/2020 showed That the previous distal left ureteral calculus was now identified within the bladder immediately distal to the ureterovesicular junction. However moderate hydronephrosis and hydroureter was still noted. She was presented for admission for treatment of her dyspnea and hypoxia. At bedside she was resting comfortably on a fairly flat bed. She denied chest pain, dyspnea. Reported abdominal soreness. She denied nausea, vomiting, fever or chills. The rest of the visit was unremarkable. 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 Would repeat x-ray when clinically indicated. Repeat chest x-ray was done February 27 and she had bilateral pleural effusions but no mention of anything in the right apex. Abdomen pelvis CT March 02 is compared to abdomen pelvis CT February 26. Interval development of mild to moderate pleural effusions, right greater than left, with superimposed consolidations. Heart size is normal. The right kidney is unremarkable. The left kidney continues to have a staghorn calculus that is unchanged. There is a 1.1 cm calcification in the posterior collecting system of the superior left renal pole. Previous distal left ureteral calculus is now in the bladder and has passed distal to the left ureterovesicular junction. Persistent moderate left sided hydronephrosis and hydroureter. Blood cultures February 27 without any growth at 5 days. Parathyroid hormone level is pending at the time of discharge Glycosylated hemoglobin is 7.2%. TSH is 7.16. - HOSPITAL COURSE Hospital Course: The patient was seen in the emergency room on February 26 and treated for an obstructive kidney stone. Outside urology was consulted and the patient was kept in the emergency room awaiting transfer for removal of the obstructing stone, and possible stent. There is no outside bed available as the patient waited and she received empiric antibiotic therapy as well as aggressive IV fluids. The stone finally passed on its own. However the patient was not hypoxic with pleural effusions from fluid overload. Emergency room asked us to admit the patient for the hypoxia and the patient was treated with diuresis. She gradually returned to baseline with regards to oxygen status. We did note that she has significant obstructive sleep apnea for which she becomes hypoxemic at night and in the vacuum drier tender hours. We have encouraged her to make sure she uses her sleep mask when she gets back to her assisted living facility. Nutrition services have seen the patient with regards to diabetic instruction, diet, etc. A1c was felt to be adequate at 7.2%. This patient is on Lantus and metformin. With her age, decent glucose status, we feel that she probably only needs single agent. As such we opted to keep her on Lantus. Metformin would be contraindicated if she were to have renal dysfunction, or to get an obstructed kidney that would put her into lactic acidosis. However, she should be followed up by her primary care provider who may decide differently. TSH was checked and she was 7.16. The patient states that she takes her medicines altogether once in the morning. We explained that she needs to take her Synthroid on empty stomach. As such we did not change her Synthroid 75 mcg a day. We have asked that it be given to her at night or that she be given it in the morning 1 hour before eating. Recheck TSH in 4 weeks. At the time of discharge a parathyroid hormone was checked and normal at 60. She will be completing a few more days of empiric antibiotic therapy with Cipro. She should probably see urology in [facility]- for the remaining stone that is in her kidney. If it leaves her kidney and drops into her ureter she will be back to being obstructed again. She is discharged in stable condition. She is a pleasant, forgetful, vague elderly female. Very cooperative, very sweet. Temperature is 37.3. Heart rate is 59. Blood pressure 135/53. Respirations 16. She is 94% on room air when awake. When she is asleep in the morning she is 90% on room air. She is 5 foot 3 inches tall and weighs 66 kg. Short stature, no neck JVD. Crackles on wakening, but clear with a deep cough. No respiratory distress. Regular rate and rhythm with systolic ejection murmur. And abdomen is soft, nontender, benign. Extremities with no edema. Greater than 30 minutes was spent coordinating discharge. She is discharged to her assisted living facility to follow-up with her primary care provider. - ALLERGIES Allergies/Adverse Reactions: Allergies Allergy/AdvReac Type Severity Reaction Status Date / Time Penicillins AdvReac Unknown Verified 07/19/20 14:14 Sulfa (Sulfonamide AdvReac Unknown Verified 07/19/20 14:14 Antibiotics) - MEDICATIONS Home Medications: Ambulatory Orders Medication Instructions Recorded Confirmed Alendronate Sodium 70 mg PO Q7D 02/26/21 03/02/21 Levothyroxine [Synthroid] 75 mcg PO QDAC 02/26/21 03/02/21 Memantine [Namenda] 5 mg PO BID 02/26/21 03/02/21 Sertraline [Zoloft] 50 mg PO DAILY 02/26/21 03/02/21 metFORMIN [Glucophage] 500 mg PO BIDWM 02/26/21 03/02/21 Amlodipine Besylate [Norvasc] 10 mg PO DAILY 03/02/21 03/02/21 Donepezil HCl [Aricept] 10 mg PO QPM 03/02/21 03/02/21 atenoloL [Tenormin] 25 mg PO DAILY 03/02/21 03/02/21 Ciprofloxacin [Cipro] 500 mg PO BID #6 tablet 03/06/21 Enoxaparin [Lovenox] 40 mg SUBQ DAILY #7 03/06/21 Furosemide [Lasix] 20 mg PO DAILY #7 tablet 03/06/21 - LABS Result Diagrams: 03/04/21 06:27 03/03/21 06:00"
--- NOTE | 2021-03-06 11:25 | Discharge Plan ---
"Discharge Plan for SNF / [facility] - Discharge Plan And Transition Orders Problem Reviewed?: Yes Disposition: 01 Home, Self Care Condition: Stable Allergies and Adverse Reactions: Allergies Allergy/AdvReac Type Severity Reaction Status Date / Time Penicillins AdvReac Unknown Verified 07/19/20 14:14 Sulfa (Sulfonamide AdvReac Unknown Verified 07/19/20 14:14 Antibiotics) Health Concerns: You came to our emergency room on February 26 and was diagnosed as an obstructing left kidney stone with a urinary tract infection. This is considered a surgical emergency were a urologist has to go in and remove that stone and unblock the kidney. Unfortunately there were no urologist available because of the COVID crisis. There were no beds available on the [facility] for you to be transferred to. You stayed in our emergency room waiting for a bed. While waiting, you were finally able to pass your kidney stone on your own. But you had become fluid overloaded from the IV fluids that were given to you. You had excess water in your body, and that lowered your oxygen level. As such we were able to bring you into the hospital since you no longer needed to see a urologist. We diuresed you by giving you Lasix to make you urinate and get rid of the excess fluid. While here we noticed that you do have sleep apnea and you drop your oxygen when you go to sleep. You need to make sure you wear your sleep mask at night. It is very apparent that your oxygen levels are low at sleep. You are now stable to go home. You are off oxygen. You still have 2 stones in your left kidney. But they are not blocking your ability to urinate. It is no longer considered a surgical urgency. The stone that was blocking you has passed through your bladder. Plan of Treatment: 1. We will resume all of your medications as you were taking them before you were admitted except for lantus. 2. We do think you need a few more days of Lasix to get rid of the excess water in your body. We only want you to take the Lasix for 1 more week and then you can stop it. 3. Please see your primary care provider and follow-up in the next 1 to 2 weeks. We would like them to check your kidney function to make sure that your potassium, sodium, and creatinine are working well. 4. While you were here we noticed that your sugars were very, very, very well controlled. Your glycosylated hemoglobin was 7.2%. Before you came into the hospital you were taking Lantus and metformin. At your age, we think that you can just stay on metformin alone. However you need to talk about it with your doctor. Right now we do not want you to be on Lantus. You and your doctor may decide to keep you on Lantus or stop the metformin. Please make sure you discuss this issue with your doctor. 5. Follow-up with your doctor about the etiology of why you make so many kidney stones. 6. While you were here we did also look at your thyroid. Your thyroid- stimulating hormone level was 7.16 which indicates that your levels are a little low. In investigating if you take your pills on an empty stomach or not, you do not take your thyroid medicine on an empty stomach. This will really make a difference on how you absorb the medicine. Please make sure you take your thyroid medicine on an empty stomach. At least an hour before you eat. Some people actually take it at night before they go to bed knowing that they will be eating until breakfast. Please have your doctor recheck your thyroid hormone in 4 weeks. Care Goals: You want to be able to go back to your baseline life. You live in [facility]. They are you get help with food, dressing, and getting your medications. Make sure you take your sleep apnea mask and use it at night when you sleep. Assessment: Patient has mild cognitive deficit. As much as she follows these instructions she promises to follow through. But she does have a lot of help at her assisted living facility. - SNF / NURSING HOME Transition Orders Admit to (Facility): [facility] Under the care of (Name): Juany Manzano Discharge Diagnosis: 1. Calculus of the ureterovesicular junction 2. Hydronephrosis, resolved 3. Urinary tract infection resolved 4. Hypoxia resolved 5. Pleural effusions that need 1 week more of Lasix daily 6. Dementia 7. Type 2 diabetes mellitus, without complication, with long-term use of insulin. We have stopped the Lantus and she is only supposed to be on metformin at this time. 8. Hypothyroidism. 9. Hypertension Medicare Certification Statement: I certify that [facility] is medically necessary on a continuing basis for any of the conditions for which she/he is receiving care during hospitalization. Notify PCP of admission and forward orders to primary provider for signature. Other Notification Orders: Call PCP immediately if patient develops dyspnea, chest pain/tightness or edema. Additional Bowel Program Orders: If no BM after 2 days, nurse may give M.O.M. 30ml PO PRN and/or ducolax Supp 1 [place] and/or TREY 250mg P.O., and/or senna 1-2 tabs PO. On day 3 nurse may give repeat above order until residents constipation is resolved. Annual Influenza Vaccine (between Oct 26 and May 25): Yes Two-step PPD per [facility] [id number] or approved exception documents: Yes Oxygen Orders: She does not use oxygen. However we noticed that she has significant apnea at night and you need to make sure she wears her sleep apnea mask. Medication Orders: PLEASE REFER TO THE DISCHARGE MEDICATION LIST. Insulin Orders?: No - Medications New Prescriptions: Ciprofloxacin [Cipro] 500 mg PO BID #6 tablet Furosemide [Lasix] 20 mg PO DAILY #7 tablet Enoxaparin [Lovenox] 40 mg SUBQ DAILY #7 - Diet Type: No added sugar Texture: Regular Liquids: Thin May have monthly special meal: Yes - Therapies | Activity Assistance Devices: Walker"
[2021-03-06 13:14] VITALS: BP 130/48
== END 2021-03-06 14:56 | disposition home or self-care (01) | DRG 690 ==
LOC: EDUNIT# → ED 17:20 → MS2 03-02 16:41 → OBSVTOIN 03-03 14:22
PROVIDERS: ADMIT Internal Medicine; ATTEND Specialist
DX: N13.2 Hydronephrosis with renal and ureteral calculous obstruction (principal); N13.6 Pyonephrosis; J90 Pleural effusion, not elsewhere classified; F03.90 Unspecified dementia, unspecified severity, without behavioral disturbance, psychotic disturbance, mood disturbance, and anxiety; R09.02 Hypoxemia; E11.9 Type 2 diabetes mellitus without complications; Z79.84 Long term (current) use of oral hypoglycemic drugs; Z79.4 Long term (current) use of insulin; Z79.899 Other long term (current) drug therapy; Z66 Do not resuscitate; Z20.822 Contact with and (suspected) exposure to COVID-19; I10 Essential (primary) hypertension; E03.9 Hypothyroidism, unspecified; G47.33 Obstructive sleep apnea (adult) (pediatric); N21.0 Calculus in bladder; G30.9 Alzheimer's disease, unspecified; F02.80 Dementia in other diseases classified elsewhere, unspecified severity, without behavioral disturbance, psychotic disturbance, mood disturbance, and anxiety
CPT/HCPCS: 36415; 51701; 71045; 74176; 80048; 80053; 81001; 83036; 83605; 83690; 83880; 83970; 84443; 85025; 87040; 87631; 94761; 96365; 96366; 96372; 96375; 96376; 99281; 99285; A6250; A9270; G0378; J1650; 0202U; 81003; 87086

== ENCOUNTER 2021-09-19 08:27 | Outpatient (CLI) | payer MEDICARE, OTHER | END 2021-09-19 08:28 | disposition critical access hospital (66) | LOC: EMS 08:27 | DX: R07.9 Chest pain, unspecified (principal) | CPT/HCPCS: A0425; A0427 ==

== ENCOUNTER 2021-09-19 08:47 | Emergency (ER) | payer MEDICARE, OTHER ==
[2021-09-19 09:19] LABS: BASOPHILS # (AUTO) 0.1 10^3/uL (0.0-0.1); BASOPHILS % (AUTO) 0.8 %; EOSINOPHILS # (AUTO) 0.2 10^3/uL (0.0-0.7); EOSINOPHILS % (AUTO) 3.3 %; HCT - HEMATOCRIT 29.9 % (37.0-47.0); HGB - HEMOGLOBIN 9.6 g/dL (12.0-16.0); LYMPHOCYTES # (AUTO) 1.6 10^3/uL (1.5-3.5); LYMPHOCYTES % (AUTO) 26.2 %; MEAN CORPUSCULAR HEMOGLOBIN 26.8 pg (27.0-31.0); MEAN CORPUSCULAR HGB CONC 32.1 g/dL (32.0-36.0); MEAN CORPUSCULAR VOLUME 83.5 fL (81.0-99.0); MEAN PLATELET VOLUME 10.9 fL (7.9-10.8); MONOCYTES # (AUTO) 0.5 10^3/uL (0.0-1.0); MONOCYTES % (AUTO) 7.4 %; NEUTROPHILS # (AUTO) 3.8 10^3/uL (1.5-6.6); PLT - PLATELET COUNT 255 10^3/uL (130-450); RED BLOOD COUNT 3.58 10^6/uL (4.20-5.40); RED CELL DISTRIBUTION WIDTH 15.1 % (12.0-15.0); WHITE BLOOD COUNT 6.1 x10^3/uL (4.8-10.8)
--- NOTE | 2021-09-19 09:21 | ED Physician Documentation ---
PD HPI CHEST PAIN - Stated complaint Stated Complaint: CP - Chief complaint Chief Complaint: Cardiac - Additional information Additional information: Patient is 81-year-old female presenting to the emergency department with chief complaint of chest pain. Accompanied by daughter who is present at bedside. Woke from sleep at approximately 715 with substernal stabbing chest pain. Lasted approximately 20 minutes. Was associated with diaphoresis. No radiation, nausea vomiting, heart palpitations. He denies previous similar symptoms in the past. Reports pain is now abated and is otherwise asymptomaticWith the expression of feeling "extremely tired like I been working all day". Past medical significant for diabetes, hypertension, recent hospitalization for kidney stone removal. Review of Systems Ten Systems: 10 systems reviewed and negative Constitutional: denies: Fever Eyes: denies: Loss of vision Ears: denies: Loss of hearing Nose: denies: Rhinorrhea / runny nose Cardiac: reports: Chest pain / pressure Respiratory: denies: Dyspnea GI: denies: Abdominal Pain : denies: Dysuria PD PAST MEDICAL HISTORY - Past Medical History Cardiovascular: Hypertension Respiratory: None Neuro: Dementia, Other Endocrine/Autoimmune: Type 2 diabetes, HyPOthyroidism HEENT: None Psych: None Musculoskeletal: None Derm: None - Past Surgical History Past Surgical History: No General: Cholecystectomy, Appendectomy Ortho: Hip replacement (right) /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 HEENT: Tonsil/Adenoidectomy - Present Medications Home Medications: Ambulatory Orders Medication Instructions Recorded Confirmed Alendronate Sodium 70 mg PO Q7D 02/26/21 09/19/21 Levothyroxine [Synthroid] 75 mcg PO QDAC 02/26/21 09/19/21 Memantine [Namenda] 5 mg PO BID 02/26/21 09/19/21 Sertraline [Zoloft] 50 mg PO DAILY 02/26/21 09/19/21 metFORMIN [Glucophage] 500 mg PO BIDWM 02/26/21 09/19/21 Amlodipine Besylate [Norvasc] 5 mg PO DAILY 03/02/21 09/19/21 Donepezil HCl [Aricept] 10 mg PO QPM 03/02/21 09/19/21 atenoloL [Tenormin] 25 mg PO DAILY 03/02/21 09/19/21 Enoxaparin [Lovenox] 40 mg SUBQ DAILY #7 03/06/21 Furosemide [Lasix] 20 mg PO DAILY #7 tablet 03/06/21 Loratadine [Allergy Relief] 10 mg PO DAILY 09/19/21 09/19/21 Omeprazole Magnesium 20 mg PO ONCE 09/19/21 09/19/21 - Allergies Allergies/Adverse Reactions: Allergies Allergy/AdvReac Type Severity Reaction Status Date / Time promethazine Allergy Unknown Verified 09/19/21 08:57 Penicillins AdvReac Unknown Verified 09/19/21 08:57 Sulfa (Sulfonamide AdvReac Unknown Verified 09/19/21 08:57 Antibiotics) - Social History Does the pt smoke?: No Smoking Status: Never smoker Does the pt drink ETOH?: No Does the pt have substance abuse?: No - Immunizations Immunizations are current?: Yes - POLST Patient has POLST: No POLST Status: Full Code PD ED PE NORMAL - General General: Alert and oriented X 3 - HEENT HEENT: Atraumatic - Neck Neck: Supple, no meningeal sign - Cardiac Cardiac: RRR, No murmur, No gallop, Strong equal pulses - Respiratory Respiratory: No respiratory distress, Clear bilaterally - Abdomen Abdomen: Non tender - Female Female : Deferred - Rectal Rectal: Deferred Results - Vitals Vitals: Vital Signs - 24 hr 09/19/21 09/19/21 09/19/21 08:52 11:10 13:00 Temperature 36.4 C L Heart Rate 58 L 51 L 53 L Respiratory 12 16 15 Rate Blood Pressure 133/64 H 136/57 H 137/60 H O2 Saturation 98 97 99 Oxygen O2 Source Room air - EKG (time done) 0907 Rate: Rate (enter#) (56) Rhythm: NSR [place]: Normal Intervals: Normal DE QRS: Normal Ischemia: Normal ST segments Compare to prior EKG: Unchanged from prior EKG Computer interpretation: Agree with computer - Labs Labs: Laboratory Tests 09/19/21 09/19/21 09/19/21 09:10 09:10 09:10 WBC 6.1 RBC 3.58 L Hgb 9.6 L Hct 29.9 L MCV 83.5 MCH 26.8 L MCHC 32.1 RDW 15.1 H Plt Count 255 MPV 10.9 H Neut # (Auto) 3.8 Lymph # (Auto) 1.6 [place] # (Auto) 0.5 Eos # (Auto) 0.2 Baso # (Auto) 0.1 Absolute Nucleated RBC 0.00 Nucleated RBC % 0.0 Sodium 138 Potassium 3.8 Chloride 105 Carbon Dioxide 26 Anion Gap 7.0 BUN 27 H Creatinine 0.8 Estimated GFR (MDRD) 69 L Glucose 105 H Calcium 9.2 Total Bilirubin 0.5 AST 165 H ALT 59 Alkaline Phosphatase 51 Troponin I High Sens 3.4 Total Protein 6.7 Albumin 3.7 Globulin 3.0 Albumin/Globulin Ratio 1.2 Lipase 53 H SARS-CoV-2 (PCR) 09/19/21 09/19/21 10:39 10:40 WBC RBC Hgb Hct MCV MCH MCHC RDW Plt Count MPV Neut # (Auto) Lymph # (Auto) [place] # (Auto) Eos # (Auto) Baso # (Auto) Absolute Nucleated RBC Nucleated RBC % Sodium Potassium Chloride Carbon Dioxide Anion Gap BUN Creatinine Estimated GFR (MDRD) Glucose Calcium Total Bilirubin AST ALT Alkaline Phosphatase Troponin I High Sens 3.1 Total Protein Albumin Globulin Albumin/Globulin Ratio Lipase SARS-CoV-2 (PCR) NOT DETECTED PD MEDICAL DECISION MAKING - ED course Complexity details: reviewed results, d/w patient, d/w family ED course: EKGPatient is 81-year-old female presenting to the emergency department with chief complaint of chest pain. ED, x-ray and serial troponins negative. Patient does have cardiac risk factors and has never had a cardiac work-up in the past. Unfortunately at this time And has stress testing is not available at our facility. Noted discussed her care directly withPatient's primary care team who will refer her for stress and further testing in the immediate future. She was given clear return precautions prior to discharge. Departure - Departure Disposition: 01 Home, Self Care Clinical Impression: Chest pain Instructions: ED Chest Pain Atypical Unkn Cause Comments: Thank you for allowing us to care for you today would be general. All the testing performed in the emergency department today including your EKG, chest x-ray and lab work were all very reassuring. I do not see any indication of injury to your heart at this time however you do have risk factors for coronary artery disease. I discussed your care directly with your primary care team and they are going to place a referral on your behalf for a stress test and further testing of your heart as needed. Please contact them either today or first thing tomorrow to inquire about follow-up. If it anytime you develop recurrent chest pain is very important that you return to the emergency department immediately for reevaluation.
--- NOTE | 2021-09-19 09:26 | XRAY Report ---
PROCEDURE: Chest 1 View X-Ray INDICATIONS: Chest pain TECHNIQUE: One view of the chest was acquired. COMPARISON: 03/02/2021 FINDINGS: Surgical changes and devices: None. Lungs and pleura: No pleural effusions or pneumothorax. Lungs are clear. Mediastinum: Mediastinal contours appear normal. Heart size is normal. Bones and chest wall: No suspicious bony lesions. Overlying soft tissues appear unremarkable. IMPRESSION: No acute cardiothoracic abnormality. Reviewed by: Polo Gonzalez MD on 09/19/2021 9:24 AM PDT Approved by: Polo Gonzalez MD on 09/19/2021 9:24 AM PDT Station ID: [id number]
[2021-09-19 09:36] LABS: ALBUMIN 3.7 g/dL (3.2-5.5); ALBUMIN/GLOBULIN RATIO 1.2 (1.0-2.2); BILIRUBIN,TOTAL 0.5 mg/dL (0.2-1.0); CALCIUM 9.2 mg/dL (8.5-10.3); CREATININE 0.8 mg/dL (0.4-1.0); POTASSIUM 3.8 mmol/L (3.5-5.0); TOTAL PROTEIN 6.7 g/dL (6.7-8.2)
[2021-09-19 13:11] VITALS: BP 137/60
== END 2021-09-19 14:18 | disposition home or self-care (01) ==
LOC: EDUNIT# → ED 08:47
DX: R07.9 Chest pain, unspecified (principal); I10 Essential (primary) hypertension; E11.9 Type 2 diabetes mellitus without complications; Z79.84 Long term (current) use of oral hypoglycemic drugs; Z20.822 Contact with and (suspected) exposure to COVID-19
CPT/HCPCS: 36415; 80053; 83690; 84484; 85025; 93005; 99284

== ENCOUNTER 2022-01-31 01:57 | Outpatient (CLI) | payer MEDICARE, OTHER | END 2022-01-31 23:59 | disposition critical access hospital (66) | LOC: EMS 01:57 | DX: R04.0 Epistaxis (principal) | CPT/HCPCS: A0425; A0427 ==

== ENCOUNTER 2022-01-31 02:16 | Emergency (ER) | payer MEDICARE, OTHER ==
[2022-01-31] MEDS ORDERED: OXYMETAZOLINE HCL 100 SPRAYS BOTTLE NAS STA (02:34)
[2022-01-31] MEDS ORDERED: LIDOCAINE VISCOUS 2% 15 ML UDC MM STA (02:34)
--- NOTE | 2022-01-31 02:34 | ED Physician Documentation ---
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 Does not take any blood-thinners. Denies injury. Review of Systems Constitutional: denies: Fever Nose: reports: Epistaxis. 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: Fibroids : Kidney stones HEENT: None Psych: None Musculoskeletal: None Derm: None - Past Surgical History Past Surgical History: Yes General: Cholecystectomy, Appendectomy Ortho: Hip replacement /COLLEGE TEACHER: Hysterectomy HEENT: Tonsil/Adenoidectomy - Present Medications Home Medications: Ambulatory Orders Medication Instructions Recorded Confirmed Alendronate Sodium 70 mg PO Q7D 02/26/21 09/19/21 Levothyroxine [Synthroid] 75 mcg PO QDAC 02/26/21 09/19/21 Memantine [Namenda] 5 mg PO BID 02/26/21 09/19/21 Sertraline [Zoloft] 50 mg PO DAILY 02/26/21 09/19/21 metFORMIN [Glucophage] 500 mg PO BIDWM 02/26/21 09/19/21 Amlodipine Besylate [Norvasc] 5 mg PO DAILY 03/02/21 09/19/21 Donepezil HCl [Aricept] 10 mg PO QPM 03/02/21 09/19/21 atenoloL [Tenormin] 25 mg PO DAILY 03/02/21 09/19/21 Enoxaparin [Lovenox] 40 mg SUBQ DAILY #7 03/06/21 Furosemide [Lasix] 20 mg PO DAILY #7 tablet 03/06/21 Loratadine [Allergy Relief] 10 mg PO DAILY 09/19/21 09/19/21 Omeprazole Magnesium 20 mg PO ONCE 09/19/21 09/19/21 - Allergies Allergies/Adverse Reactions: Allergies Allergy/AdvReac Type Severity Reaction Status Date / Time promethazine Allergy Unknown Verified 09/19/21 08:57 Penicillins AdvReac Unknown Verified 09/19/21 08:57 Sulfa (Sulfonamide AdvReac Unknown Verified 09/19/21 08:57 Antibiotics) - Social History Does the pt smoke?: No Smoking Status: Never smoker Does the pt drink ETOH?: No Does the pt have substance abuse?: No - Immunizations Immunizations are current?: Yes - POLST Patient has POLST: No POLST Status: Full Code PD ED PE NORMAL - Vitals Vital signs reviewed: Yes - General General: Alert and oriented X 3, No acute distress, Well developed/nourished - HEENT HEENT: Pharynx benign PD ED PE EXPANDED - HEENT HEENT: Right nares epsitaxis (right anterior septum punctate location of steady , non-pulsatile bleeding). No: Left nares epistaxis Results - Vitals Vitals: Oxygen O2 Source Room air Procedures - Epistaxis Site: Right Preparation: Afrin, Lidocaine Treatment: Silver Nitrate Other: Observed - no bleeding, Pt tolerated well PD MEDICAL DECISION MAKING - ED course Complexity details: considered differential, d/w patient Departure - Departure Disposition: 01 Home, Self Care Clinical Impression: Epistaxis Condition: Good Instructions: ED Nosebleed Discharge Date/Time: 01/31/22 05:31
[2022-01-31] MEDS ORDERED: SILVER NITRATE APPLICATOR TOP STA (03:22)
[2022-01-31 05:32] VITALS: BP 147/90
== END 2022-01-31 05:31 | disposition home or self-care (01) ==
LOC: EDUNIT# → ED 02:16
DX: R04.0 Epistaxis (principal); I10 Essential (primary) hypertension; E11.9 Type 2 diabetes mellitus without complications; Z79.84 Long term (current) use of oral hypoglycemic drugs
CPT/HCPCS: 30901; 99282; 99283; A9270

== ENCOUNTER 2022-02-03 13:39 | Outpatient (CLI) | payer MEDICARE, OTHER ==
[2022-02-03 14:03] LABS: BASOPHILS # (AUTO) 0.1 10^3/uL (0.0-0.1); BASOPHILS % (AUTO) 0.9 %; EOSINOPHILS # (AUTO) 0.1 10^3/uL (0.0-0.7); EOSINOPHILS % (AUTO) 2.3 %; HCT - HEMATOCRIT 31.9 % (37.0-47.0); HGB - HEMOGLOBIN 9.5 g/dL (12.0-16.0); LYMPHOCYTES # (AUTO) 1.2 10^3/uL (1.5-3.5); LYMPHOCYTES % (AUTO) 20.8 %; MEAN CORPUSCULAR HEMOGLOBIN 24.3 pg (27.0-31.0); MEAN CORPUSCULAR HGB CONC 29.8 g/dL (32.0-36.0); MEAN CORPUSCULAR VOLUME 81.6 fL (81.0-99.0); MEAN PLATELET VOLUME 10.4 fL (7.9-10.8); MONOCYTES # (AUTO) 0.4 10^3/uL (0.0-1.0); MONOCYTES % (AUTO) 7.8 %; NEUTROPHILS # (AUTO) 3.8 10^3/uL (1.5-6.6); PLT - PLATELET COUNT 277 10^3/uL (130-450); RED BLOOD COUNT 3.91 10^6/uL (4.20-5.40); RED CELL DISTRIBUTION WIDTH 15.3 % (12.0-15.0); WHITE BLOOD COUNT 5.6 x10^3/uL (4.8-10.8)
== END 2022-02-03 13:40 | disposition home or self-care (01) ==
LOC: LAB 13:39
PROVIDERS: ATTEND Family Medicine
DX: D64.9 Anemia, unspecified (principal)
CPT/HCPCS: 36415; 85025

== ENCOUNTER 2022-04-03 19:14 | Outpatient (CLI) | payer MEDICARE, OTHER | END 2022-04-03 19:15 | disposition critical access hospital (66) | LOC: EMS 19:14 | DX: M54.2 Cervicalgia (principal); R42 Dizziness and giddiness; R26.81 Unsteadiness on feet; W01.0XXA Fall on same level from slipping, tripping and stumbling without subsequent striking against object, initial encounter; Y93.01 Activity, walking, marching and hiking; Y92.098 Other place in other non-institutional residence as the place of occurrence of the external cause | CPT/HCPCS: A0425; A0429 ==

== ENCOUNTER 2022-04-03 19:33 | Emergency (ER) | payer MEDICARE, OTHER ==
--- NOTE | 2022-04-03 19:53 | ED Physician Documentation ---
History of Present Illness - Stated complaint Stated Complaint: GLF - Chief complaint Chief Complaint: Trauma Hd/Nk - History obtained from History obtained from: Patient, EMS - History of Present Illness Pain level max: 2 Pain level now: 1 - Additonal information Additional information: Patient is an 81-year-old female who presents to the emergency department after ground-level fall. She states that she tripped at home on a piece of carpet and fell on the linoleum striking her head. She initially had some right-sided neck pain but that has now resolved. She has a small skin tear on the left forearm. She states her blood sugar was high today at 350. She is diabetic. She states she does not check her blood sugars regularly.No focal numbness or weakness. No loss of bowel or bladder control. She is not on blood thinners.. She states her tetanus shot is up-to-date. She has a small skin tear to the left forearm. 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 : Kidney stones HEENT: None Psych: None Musculoskeletal: None Derm: None - Past Surgical History Past Surgical History: Yes General: Cholecystectomy, Appendectomy Ortho: Hip replacement /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: Hysterectomy HEENT: Tonsil/Adenoidectomy - Present Medications Home Medications: Ambulatory Orders Medication Instructions Recorded Confirmed Alendronate Sodium 70 mg PO Q7D 02/26/21 09/19/21 Levothyroxine [Synthroid] 75 mcg PO QDAC 02/26/21 09/19/21 Memantine [Namenda] 5 mg PO BID 02/26/21 09/19/21 Sertraline [Zoloft] 50 mg PO DAILY 02/26/21 09/19/21 metFORMIN [Glucophage] 500 mg PO BIDWM 02/26/21 09/19/21 Amlodipine Besylate [Norvasc] 5 mg PO DAILY 03/02/21 09/19/21 Donepezil HCl [Aricept] 10 mg PO QPM 03/02/21 09/19/21 atenoloL [Tenormin] 25 mg PO DAILY 03/02/21 09/19/21 Enoxaparin [Lovenox] 40 mg SUBQ DAILY #7 03/06/21 Furosemide [Lasix] 20 mg PO DAILY #7 tablet 03/06/21 Loratadine [Allergy Relief] 10 mg PO DAILY 09/19/21 09/19/21 Omeprazole Magnesium 20 mg PO ONCE 09/19/21 09/19/21 - Allergies Allergies/Adverse Reactions: Allergies Allergy/AdvReac Type Severity Reaction Status Date / Time promethazine Allergy Unknown Verified 04/03/22 19:39 Penicillins AdvReac Unknown Verified 04/03/22 19:39 Sulfa (Sulfonamide AdvReac Unknown Verified 04/03/22 19:39 Antibiotics) - Social History Does the pt smoke?: No Smoking Status: Never smoker Does the pt drink ETOH?: No Does the pt have substance abuse?: No - Immunizations Immunizations are current?: No Immunizations: TDAP >10years/unknown - POLST Patient has POLST: No POLST Status: Full Code PD ED PE NORMAL - Vitals Vital signs reviewed: Yes - General General: Alert and oriented X 3, No acute distress, Well developed/nourished - HEENT HEENT: Atraumatic, PERRL, Ears normal, Moist mucous membranes, Pharynx benign - Neck Neck: Supple, no meningeal sign, No bony TTP - Cardiac Cardiac: RRR, Strong equal pulses - Respiratory Respiratory: No respiratory distress, Clear bilaterally - Abdomen Abdomen: Soft, Non tender, Non distended - Back Back: No CVA TTP, No spinal TTP - Derm Derm: Warm and dry, No rash - Extremities Extremities: Other (Small skin tear to the left forearm. No active bleeding. Approximately 1 cm in length. No deformity. Otherwise normal examination of all 4 extremities in all major joints. 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, No motor deficit, No sensory deficit, Normal speech Eye Opening: Spontaneous Motor: Obeys Commands Verbal: Oriented GCS Score: 15 - Psych Psych: Normal mood, Normal affect Results - Vitals Vitals: Vital Signs - 24 hr 04/03/22 04/03/22 04/03/22 19:39 19:43 21:38 Temperature 36.6 C 36.6 C 36.5 C Heart Rate 64 64 62 Respiratory 16 16 16 Rate Blood Pressure 142/65 H 142/65 H 130/62 O2 Saturation 98 98 100 Oxygen O2 Source Room air - Labs Labs: Laboratory Tests 04/03/22 04/03/22 19:56 19:56 WBC 5.0 RBC 3.97 L Hgb 9.8 L Hct 32.3 L MCV 81.4 MCH 24.7 L MCHC 30.3 L RDW 15.9 H Plt Count 282 MPV 11.1 H Neut # (Auto) 2.8 Lymph # (Auto) 1.5 Evangeline # (Auto) 0.4 Eos # (Auto) 0.2 Baso # (Auto) 0.1 Absolute Nucleated RBC 0.00 Nucleated RBC % 0.0 Sodium 133 L Potassium 5.2 H Chloride 95 L Carbon Dioxide 22 Anion Gap 16.0 H BUN 28 H Creatinine 0.9 Estimated GFR (MDRD) 60 L Glucose 274 H Calcium 10.1 Total Bilirubin 0.6 AST 27 ALT 24 Alkaline Phosphatase 32 L Total Protein 7.0 Albumin 3.6 Globulin 3.4 Albumin/Globulin Ratio 1.1 - Rads (name of study) Head CT Radiology: Final report received, See rad report Cervical spine CT Radiology: Final report received, See rad report PD Medical Decision Making - ED course Complexity details: reviewed results, re-evaluated patient, considered differential, d/w patient Reviewed Lab Results: CBC shows a chronic anemia, hemoglobin 9.8. CMP shows a mild hyponatremia, 133, mild hyperkalemia at 5.2, elevated BUN to creatinine ratio, 28/0.9. Elevated glucose at 274. ED course: Patient is status post a ground-level fall. No acute findings on head CT or cervical spine CT. She has chronic anemia and her anemia is stable on CBC. Wounds were cleansed and bandaged. She is hyperglycemic, but down to around 270. She will follow-up with her doctor for adjustment of her diabetes medications. Patient declines an IV at this time. Ambulating well. Patient counseled regarding signs and symptoms for which I believe and urgent re- evaluation would be necessary. Patient with good understanding of and agreement to plan and is comfortable going home at this time This document was made in part using voice recognition software. While efforts are made to proofread this document, sound alike and grammatical errors may occur. Departure - Departure Disposition: 01 Home, Self Care Clinical Impression: Hyperglycemia, Dehydration, Skin abrasion Fall Qualifiers: Encounter type: initial encounter Qualified Code(s): W19.XXXA - Unspecified fall, initial encounter Condition: Good Instructions: ED Abrasion, ED Dehydration, ED Mechanical Fall Follow-Up: your,doctor in 1 week [Other] Comments: Please follow-up with your doctor for further care. Please return if you worsen. Your blood sugar was high tonight's 274. Please follow-up with your doctor to adjust your diabetes medications. Discharge Date/Time: 04/03/22 21:38
[2022-04-03 20:30] LABS: BASOPHILS # (AUTO) 0.1 10^3/uL (0.0-0.1); EOSINOPHILS # (AUTO) 0.2 10^3/uL (0.0-0.7); EOSINOPHILS % (AUTO) 3.6 %; HCT - HEMATOCRIT 32.3 % (37.0-47.0); HGB - HEMOGLOBIN 9.8 g/dL (12.0-16.0); LYMPHOCYTES # (AUTO) 1.5 10^3/uL (1.5-3.5); LYMPHOCYTES % (AUTO) 30.6 %; MEAN CORPUSCULAR HEMOGLOBIN 24.7 pg (27.0-31.0); MEAN CORPUSCULAR HGB CONC 30.3 g/dL (32.0-36.0); MEAN CORPUSCULAR VOLUME 81.4 fL (81.0-99.0); MEAN PLATELET VOLUME 11.1 fL (7.9-10.8); MONOCYTES # (AUTO) 0.4 10^3/uL (0.0-1.0); MONOCYTES % (AUTO) 8.2 %; NEUTROPHILS # (AUTO) 2.8 10^3/uL (1.5-6.6); NEUTROPHILS % (AUTO) 56.4 %; PLT - PLATELET COUNT 282 10^3/uL (130-450); RED BLOOD COUNT 3.97 10^6/uL (4.20-5.40); RED CELL DISTRIBUTION WIDTH 15.9 % (12.0-15.0)
--- NOTE | 2022-04-03 20:36 | CT Report ---
PROCEDURE: CERVICAL SPINE WO INDICATIONS: cervical spine pain s/p fall TECHNIQUE: Noncontrast 3 mm thick sections acquired from the skull base to the T4 level. Sagittal and coronal r eformats were then constructed. For radiation dose reduction, the following was used: automated exp osure control, adjustment of mA and/or kV according to patient size. COMPARISON: None. FINDINGS: Image quality: Excellent. Bones: No fractures or dislocations. There is straightening of normal cervical lordosis. Loss of dis c height, degenerative endplate changes and bilateral facet hypertrophic changes are noted throughout cervical spine. There is dorsal disc osteophyte complex formation at C4-5 through C6-7 levels causin g mild central canal stenosis and mild bilateral neural foraminal narrowing. Visualized superior ribs are intact. Soft tissues: Prevertebral soft tissues are normal in thickness. No paravertebral hematomas. No ap ical pneumothoraces. IMPRESSION: 1. No acute cervical spine fracture or dislocation. 2. Degenerative disc disease throughout cervical spine as above. Reviewed by: Derrek Mg MD on 04/03/2022 8:35 PM PST Approved by: Derrek Mg MD on 04/03/2022 8:35 PM PST Station ID: [id number]
--- NOTE | 2022-04-03 20:37 | CT Report ---
PROCEDURE: HEAD WO INDICATIONS: head pain s/p fall TECHNIQUE: Noncontrast 4.5 mm thick angled axial sections acquired from the foramen magnum to the vertex. For r adiation dose reduction, the following was used: automated exposure control, adjustment of mA and/or kV according to patient size. COMPARISON: None FINDINGS: Image quality: Excellent. CSF spaces: Basal cisterns are patent. No extra-axial fluid collections. The ventricles are symmet juana in size and shape. Brain: No intracranial bleeds or masses. There is cerebral volume loss for age, with resultant vent ricular and sulcal prominence. There are periventricular and deep white matter chronic small vessel ischemic changes. There is intracranial internal carotid artery atherosclerosis. Skull and face: Calvarium and visualized facial bones appear intact, without suspicious lesions. Sinuses: Visualized sinuses and mastoids are clear. IMPRESSION: 1. No CT evidence of acute intracranial abnormalities. 2. Age-related volume loss and extensive white matter chronic small vessel ischemic changes. Reviewed by: Derrek Mg MD on 04/03/2022 8:36 PM PST Approved by: Derrek Mg MD on 04/03/2022 8:36 PM PST Station ID: [id number]
[2022-04-03 20:52] LABS: ALBUMIN 3.6 g/dL (3.2-5.5); ALBUMIN/GLOBULIN RATIO 1.1 (1.0-2.2); BILIRUBIN,TOTAL 0.6 mg/dL (0.2-1.0); CREATININE 0.9 mg/dL (0.4-1.0)
[2022-04-03 20:59] LABS: CALCIUM 10.1 mg/dL (8.5-10.3); POTASSIUM 5.2 mmol/L (3.5-5.0)
[2022-04-03 21:40] VITALS: BP 130/62
== END 2022-04-03 21:38 | disposition home or self-care (01) ==
LOC: EDUNIT# → ED 19:33
DX: S51.812A Laceration without foreign body of left forearm, initial encounter (principal); W01.198A Fall on same level from slipping, tripping and stumbling with subsequent striking against other object, initial encounter; Y92.199 Unspecified place in other specified residential institution as the place of occurrence of the external cause; D64.9 Anemia, unspecified; E11.65 Type 2 diabetes mellitus with hyperglycemia; E86.0 Dehydration; Z79.84 Long term (current) use of oral hypoglycemic drugs
CPT/HCPCS: 36415; 80053; 85025; 99284